=== PATIENT | female | born 1950 | race Caucasian/White ===

== ENCOUNTER → 2017-12-13 08:24 | Outpatient (CLI) | payer MEDICARE, OTHER, SELFPAY ==
--- NOTE | 2017-12-13 08:28 | XR_ITS ---
XR DEXA axial skeleton HISTORY: ITS.REASON: OSTEOPENIA ORDERING PHYSICIAN: Nanette Frausto MD PATIENT AGE: 67 years COMPARISON: None FINDINGS: The BMD measured at the left femoral neck is 0.830 g/cm squared with a T score of -1.5. This is considered Osteopenic according to the World Health Organization criteria. Fracture risk is Moderate. Treatment is advised. L1-L4 density has a T score of 0.8 IMPRESSION: Osteopenia with moderate fracture risk. Treatment is advised. Recommend follow-up exam November 2019
--- NOTE | 2017-12-13 08:28 | MM_ITS ---
MM Dig screening mamm BI w/CAD ORDERING PHYSICIAN : Nanette Frausto MD PATIENT AGE: 67 years GENDER: Female COMPARISON: July 2013 & June 2012... & October 2014 bilateral mammogram studies INDICATION: ITS.REASON: SCREENING takes estrogen. No new complaints. Noncontributory family history.. TECHNIQUE: Standard CC and MLO images were obtained. R2 CAD reviewed. FINDINGS: Fairly dense breast tissue bilaterally which do slightly decreased sensitivity of mammography. No suspicious nor dominant mass nor suspicious calcifications. Prior films are helpful and demonstrate no significant interval change. Similar pattern bilaterally. Bilateral follow-up in one year adequate IMPRESSION: Stable bilateral mammogram with no significant new findings. Moderately dense breast slightly decreased sensitivity mammography but no new areas of concern Bilateral follow-up one year BI-RADS Category: 1 Negative RECOMMENDED FOLLOW-UP: 1YR 1 YEAR FOLLOW-UP (A letter has been sent to the patient regarding results of the study.)
== END ==
PROVIDERS: PCP Family Medicine; Visit Provider Family Medicine
DX: Z12.31 Encounter for screening mammogram for malignant neoplasm of breast (principal); M85.89 Other specified disorders of bone density and structure, multiple sites
CPT/HCPCS: 77067; 77080

== ENCOUNTER → 2018-05-29 10:06 | Outpatient (CLI) | payer MEDICARE, OTHER, SELFPAY ==
--- NOTE | 2018-05-29 10:13 | XR_ITS ---
XR foot LT min 3V HISTORY: Pain following injury ITS.REASON: LT FOOT FX ORDERING PHYSICIAN: Nanette Frausto MD PATIENT AGE: 67 years COMPARISON: None FINDINGS: No fracture lines are evident. There is some faint calcification noted along the lateral aspect in the base of the fifth metatarsal. This could represent an area of periosteal reaction from healing fracture. There are no old exams available for comparison. There is a nonspecific lucency also at the base of the fifth metatarsal at 6 mm round well-circumscribed benign-appearing. Otherwise negative. IMPRESSION: Possible healing fracture base of the fifth metatarsal. No acute fracture evident
== END ==
PROVIDERS: PCP Family Medicine; Visit Provider Family Medicine
DX: S99.192A Other physeal fracture of left metatarsal, initial encounter for closed fracture (principal)
CPT/HCPCS: 73630

== ENCOUNTER → 2019-08-11 09:51 | Outpatient (CLI) | payer MEDICARE, OTHER, SELFPAY ==
[2019-08-11 11:37] LABS: Coronavirus 19 IgG Antibody Negative (Negative); Coronavirus 19 IgM Antibody Negative (Negative)
== END ==
PROVIDERS: Visit Provider Ophthalmology
DX: Z03.818 Encounter for observation for suspected exposure to other biological agents ruled out (principal)
CPT/HCPCS: 36415; 86328

== ENCOUNTER 2019-08-12 09:01 | Day surgery (SDC) | payer MEDICARE, OTHER, SELFPAY ==
--- NOTE | 2019-08-06 13:19 | SUR.PREOP ---
08/06/2019--PHONE CALL MADE TO PATIENT. PATIENT UNDERSTANDS THAT LAB WORK AND COVID TESTING NEEDS TO BE COMPLETED @ 0930 ON 08/11/2019. PATIENT UNDERSTANDS IF LAB WORK AND COVID-19 TESTS ARE NOT COMPLETED BY 12PM ON THAT DATE, THE SURGERY SCHEDULED WILL BE CANCELLED AND RESCHEDULED FOR ANOTHER TIME.
[2019-08-07 13:07] VITALS: BMI 30.9
[2019-08-12 10:09] VITALS: BP 158/71; PULSE 67; RESP 18; TEMP 36.6; O2SAT 97
[2019-08-12 10:20] LABS: POC Glucose,Bedside 103 (70-110)
[2019-08-12 11:08] VITALS: BP 181/84; PULSE 69; RESP 18; TEMP 36.3; O2SAT 98
== END 2019-08-12 11:30 | disposition home or self-care (01) ==
LOC: OUTP 09:03
PROVIDERS: PCP Family Medicine; Visit Provider Ophthalmology
PROC: (CPT 66821; principal; 2019-08-12 10:00)
DX: H26.40 Unspecified secondary cataract (principal); E11.9 Type 2 diabetes mellitus without complications; M19.90 Unspecified osteoarthritis, unspecified site; Z80.9 Family history of malignant neoplasm, unspecified; Z83.3 Family history of diabetes mellitus; Z82.49 Family history of ischemic heart disease and other diseases of the circulatory system; Z90.710 Acquired absence of both cervix and uterus; Z85.820 Personal history of malignant melanoma of skin; Z79.84 Long term (current) use of oral hypoglycemic drugs; Z79.899 Other long term (current) drug therapy; Z88.1 Allergy status to other antibiotic agents
CPT/HCPCS: 66821; 82962

== ENCOUNTER 2019-10-19 13:13 | Emergency (ER) | payer MEDICARE, OTHER, SELFPAY ==
[2019-10-19 13:31] VITALS: BP 144/75; PULSE 88; RESP 19; TEMP 37.1; O2SAT 98; BMI 30.9
--- NOTE | 2019-10-19 13:42 | XR_ITS ---
PROCEDURE: XR FOOT RT MIN 3V Patient Age:68Y CLINICAL INDICATION: stepped on nail Puncture wound the heel area COMPARISON: No exams were available for comparison FINDINGS: Right foot 3 views. AP lateral oblique Right foot intact with no fracture or dislocation. No lytic or blastic change. There is normal mineralization. The joint spaces are well-preserved. Tarsals and metatarsals intact no significant degenerative/arthritic changes.... The lateral view shows a tiny 0.6 mm pinpoint graeme of radiopaque density 5 mm deep to the skin-this is nonspecific but may reflect a tiny residual radiopaque fragment from the puncture wound. Since I do not see it on the other views I cannot confirm totally exclude artifact on this single view Small plantar calcaneal spur less than 3.5 mm length.. Minimal calcification at the insertion of Achilles tendon also noted. Calcaneus intact.. IMPRESSION: 1..No fracture. Osseous structures intact. 2... Tiny 0.6 mm, pinpoint radiopaque graeme of radiopaque density is seen just 5 mm beneath the skin surface of the the heel.. This could reflect and suspect for a tiny residual foreign body fragment from the recent puncture wound; but since I do not see of the views I cannot totally exclude artifact Dictated by: Caleb Peterson MD 10/19/2019 21:55 Electronically signed by Caleb Peterson MD in [place] 10/19/2019 21:55
--- NOTE | 2019-10-19 13:51 | HMH.EDUTC ---
[facility] [place] Disposition Clinical Impression: Puncture wound Disposition: Home, Self-Care Condition on Discharge: Good Instructions: DI for Puncture Wound Additional Instructions: follow up with dr collins call for appointment in am if worsen of no improvement return or be seen in ed Prescriptions: Ciprofloxacin HCl [Ciprofloxacin 500mg Tab] 500 mg PO BID 14 Days #28 tab Prescription Printed clindamycin HCL [Clindamycin HCl 300mg Cap] 300 mg PO Q8 14 Days #42 cap Prescription Printed Referrals: Nanette Frausto MD [Primary Care Provider] - Medical Decision Making - Edmundo Inquiry Pt receiving controlled substance: No Vital Signs: 10/19/19 13:31 Temperature 98.7 F Temperature Source Oral Pulse Rate [Right Brachial] 88 Respiratory Rate 19 Blood Pressure [Right Arm] 144/75 H Blood Pressure Mean [Right Arm] 98 Blood Pressure Source [Right Arm] Automatic Cuff Blood Pressure Position [Right Arm] Sitting 02 Sat by Pulse Oximetry 98 Oxygen Delivery Method Room Air Orders (Tests/Meds): ED MEDICATIONS Discontinued Medications Generic Name Dose Route Start Last Admin Trade Name Freq PRN Reason Stop Dose Admin Tetanus/Reduced Diphtheria/Acell Pertussis 0.5 ml 10/19/19 13:36 10/19/19 13:44 Adacel Tdap 0.5ml Syringe IM 10/19/19 13:37 0.5 ml .ONCE ONE Administration ORDERS Category Date Time Status XR foot RT min 3V Stat Exams 10/19/19 13:42 Ordered - Physician Consults Physician Consulted: audrey Time: 14:27 Comment/Response: pt states she can take cipro but it upsets her stomach but will take it. and minocycline upset stomach also, suggest clinda to cover mrsa. [facility] [place] HPI - General Chief complaint: Urgent Treatment Center Stated complaint: stepped on nail. AO 10/19/19 Time Seen by Provider: 10/19/19 13:51 Mode of Arrival: Ambulatory Source of Information: Patient Limitations: No Limitations Description of Symptoms (Recalled from Triage Doc. by RN): PATIENT STATES SHE STEPPED ON A NAIL WITH HER RIGHT FOOT YESTERDAY HEENT Symptoms (Recalled from RN notes): No Resp Symptoms (Recalled from RN notes): No Skin Symptoms (Recalled from RN notes): Yes MS Symptoms (Recalled from RN notes): No Functional Status (Recalled from RN notes): WNL - History of Present Illness Provider Complaint: 68 yr old female presents with stepping on nail yesterday. Pt states she had her shoes on and it might have went 1/2 in in shoe and foot. pt states she is a diabetic. - Related Data Home Medications Medication Instructions Recorded Confirmed levocetirizine 5 mg tablet 5 mg PO QHS 09/26/17 10/19/19 metformin 500 mg tablet 500 mg PO DAILY 09/26/17 10/19/19 Previous Rx's Medication Instructions Recorded Ciprofloxacin HCl [Ciprofloxacin 500 mg PO BID 14 Days #28 tab 10/19/19 500mg Tab] clindamycin HCL [Clindamycin HCl 300 mg PO Q8 14 Days #42 cap 10/19/19 300mg Cap] Allergies Allergy/AdvReac Type Severity Reaction Status Date / Time levofloxacin Allergy Verified 08/07/19 13:05 oxytetracycline Allergy Verified 08/07/19 13:05 Quinolones Allergy Verified 08/07/19 13:05 - Worker's Comp Is this a Worker's Comp case?: No [facility] [place] History - Hepatitis A Screen Drug use history?: No High risk sexual behaviors?: No History of sexually transmitted infection?: No Currently employed?: No Childcare worker?: No Do you have indoor plumbing?: Yes Do you have electricity?: Yes Attestation statement:: This patient has been screened for Hepatitis A risk factors. I have reviewed the patient's past medical history: Yes Medical History: Reports:: Cancer, Diabetes Mellitus Type 2, Hyperlipidemia Denies:: Diabetes Mellitus Type 1, Internal Pacemaker, Lung Disease, MRSA, Seizures Other Medical History: Denies: Blood Transfusion Reaction Other Surgeries: Yes: Colonoscopy, EGD, Hysterectomy-Total, Tubal Ligation, Other. No: Pacemaker Amputation: No Fractures: No - Social History
[2019-10-19 14:33] VITALS: BP 144/75; PULSE 88; RESP 19; TEMP 37.1; O2SAT 98
== END 2019-10-19 14:52 | disposition home or self-care (01) ==
PROVIDERS: Emergency Provider Nurse Practitioner Family; PCP Family Medicine
DX: S91.331A Puncture wound without foreign body, right foot, initial encounter (principal); W22.8XXA Striking against or struck by other objects, initial encounter; Y92.017 Garden or yard in single-family (private) house as the place of occurrence of the external cause; Z23 Encounter for immunization; E11.9 Type 2 diabetes mellitus without complications; Z79.84 Long term (current) use of oral hypoglycemic drugs; E78.5 Hyperlipidemia, unspecified; Z88.1 Allergy status to other antibiotic agents; Z90.79 Acquired absence of other genital organ(s); Z79.899 Other long term (current) drug therapy
CPT/HCPCS: 29515; G0463; 73630; 90471; 90715; 99202

== ENCOUNTER → 2019-10-20 08:54 | Outpatient (CLI) | payer MEDICARE, OTHER, SELFPAY ==
--- NOTE | 2019-10-20 09:07 | XR_ITS ---
PROCEDURE: XR CALCANEUS RT MIN 2V CLINICAL INDICATION: Right foot puncture wound Pain COMPARISON: No exams were available for comparison FINDINGS: No fracture or dislocation. No lytic or blastic change. There is normal mineralization. The joint spaces are well-preserved. No significant degenerative/arthritic changes. No erosive changes evident. Other findings:No radiopaque foreign body. No obvious soft tissue gas IMPRESSION: No acute findings. Dictated by: Isra Forbes MD 10/20/2019 10:32 Electronically signed by Isra Forbes MD in [place] 10/20/2019 10:32
== END ==
PROVIDERS: PCP Family Medicine; Visit Provider Podiatrist
DX: S90.851A Superficial foreign body, right foot, initial encounter (principal); S91.331A Puncture wound without foreign body, right foot, initial encounter
CPT/HCPCS: 73650; 87070; 87077; 87186; 87205

== ENCOUNTER → 2019-10-20 17:57 | Outpatient (CLI) | payer MEDICARE, OTHER, SELFPAY | PROVIDERS: Visit Provider Podiatrist | DX: S90.851A Superficial foreign body, right foot, initial encounter (principal); S91.331A Puncture wound without foreign body, right foot, initial encounter | CPT/HCPCS: 73650; 87070; 87077; 87186; 87205 ==

== ENCOUNTER 2020-03-21 10:55 | Emergency (ER) | payer MEDICARE, OTHER, SELFPAY ==
[2020-03-21 11:05] VITALS: BP 112/87; PULSE 93; RESP 16; TEMP 36.7; O2SAT 95; BMI 33.3
--- NOTE | 2020-03-21 11:28 | HMH.EDUTC ---
[facility] [place] Clinical Impression: COVID-19 virus test result unknown Sinus infection Qualifiers: Sinusitis location: maxillary Chronicity: acute Recurrence: non-recurrent Qualified Code(s): J01.00 - Acute maxillary sinusitis, unspecified Disposition: Home, Self-Care Condition on Discharge: Good Instructions: Sinusitis, DI for Sinusitis, DI for COVID-19 (Suspected or Confirmed ), Preventing the Spread of Coronavirus Discharge Instructions Additional Instructions: Start antibiotic patient to take as ordered for a full length of time even if you feel better. Sinus infections do not get better overnight. It may take 2-3 days to notice much improvement so be sure to use conservative measures as discussed for symptoms. Flonase 1 spray each nostril daily to help with nasal congestion, sinus and ear pressure/information Increase fluids Humidifier/vaporizer as needed Tylenol and ibuprofen as needed for fever or pain. If symptoms do not improve or get worse return or be seen in the ER Follow-up with primary care this week self isolate until test results are known negative Prescriptions: Azithromycin [Zithromax 250mg tab] 250 mg PO DIRECTED #6 tab Prescription Printed Referrals: Nanette Frausto MD [Primary Care Provider] - Time of Disposition: 12:10 Medical Decision Making - Edmundo Inquiry Pt receiving controlled substance: No Vital Signs: 03/21/20 11:05 Temperature 98.0 F Temperature Source Oral Pulse Rate [Right Brachial] 93 H Respiratory Rate 16 Blood Pressure [Right Arm] 112/87 Blood Pressure Mean [Right Arm] 95 Blood Pressure Source [Right Arm] Automatic Cuff Blood Pressure Position [Right Arm] Sitting 02 Sat by Pulse Oximetry 95 Oxygen Delivery Method Room Air Orders (Tests/Meds): ORDERS Category Date Time Status Covid-19 Nasal PCR ([facility]) Routine Lab 03/21/20 11:15 Received [facility] [place] - General Chief complaint: Urgent Treatment Center Stated complaint: cough, fever, soa Time Seen by Provider: 03/21/20 11:28 Mode of Arrival: Ambulatory Source of Information: Patient Limitations: No Limitations Description of Symptoms (Recalled from Triage Doc. by RN): PATIENT C/O POSSIBLE SINUS INFECTION HEENT Symptoms (Recalled from RN notes): Yes Resp Symptoms (Recalled from RN notes): No Skin Symptoms (Recalled from RN notes): No MS Symptoms (Recalled from RN notes): No Functional Status (Recalled from RN notes): WNL - History of Present Illness Provider Complaint: 69 yr old female presents for coughing up yellow tinged sputum, sore throat,body aches, sinus pressure,horseness and low grade temp. pt states she was around people that had tested pos for covid but they had been out of the 14 day isolation. pt states she thinks it could be a sinus infection but this feels different than her normal sinus infection. - Related Data Home Medications Medication Instructions Recorded Confirmed levocetirizine 5 mg tablet 5 mg PO QHS 09/26/17 03/21/20 metformin 500 mg tablet 500 mg PO DAILY 09/26/17 03/21/20 estradioL [Cynthia] 1 patch TRANSDERMA .semiweekly 03/21/20 03/21/20 Previous Rx's Medication Instructions Recorded Azithromycin [Zithromax 250mg 250 mg PO DIRECTED #6 tab 03/21/20 tab] Allergies Allergy/AdvReac Type Severity Reaction Status Date / Time levofloxacin Allergy Verified 02/05/20 09:40 oxytetracycline Allergy Verified 02/05/20 09:40 Quinolones Allergy Verified 02/05/20 09:40 - Worker's Comp Is this a Worker's Comp case?: No [facility] History - Hepatitis A Screen Drug use history?: No High risk sexual behaviors?: No History of sexually transmitted infection?: No Currently employed?: No Childcare worker?: No Do you have indoor plumbing?: Yes Do you have electricity?: Yes Attestation statement:: This patient has been screened for Hepatitis A risk factors. I have reviewed the patient's past medical history: Yes Medical History: Reports:: Cancer,
[2020-03-21 12:13] VITALS: BP 112/87; PULSE 93; RESP 16; TEMP 36.7; O2SAT 95
--- NOTE | 2020-03-21 19:59 | PC.NURSE ---
PATIENT NOTIFIED OF POSITIVE COVID RESULTS
[2020-03-21 21:24] LABS: UTC Influenza A Antigen Negative (Negative)
[2020-03-21 21:25] LABS: UTC Influenza B Antigen Negative (Negative); UTC Strep Screen (Rapid) Negative (Negative)
== END 2020-03-21 12:15 | disposition home or self-care (01) ==
PROVIDERS: Emergency Provider Nurse Practitioner Family; PCP Family Medicine
DX: U07.1 COVID-19 (principal); J01.00 Acute maxillary sinusitis, unspecified; E11.9 Type 2 diabetes mellitus without complications; Z79.84 Long term (current) use of oral hypoglycemic drugs; Z79.899 Other long term (current) drug therapy
CPT/HCPCS: G0463; 87804; 87880; 99202; U0003

== ENCOUNTER → 2022-01-04 12:18 | Outpatient (CLI) | payer MEDICARE, OTHER, SELFPAY ==
--- NOTE | 2022-01-04 12:29 | XR_ITS ---
FINAL REPORT CLINICAL HISTORY: HIP PAIN,LOW BACK PAIN,KNEE PAIN FINDINGS: RIGHT KNEE Three views of the right knee reveal no evidence of fracture or dislocation. The bony alignment is normal. There are mild degenerative changes. There is no evidence of joint effusion. No localized soft tissue abnormality is identified. IMPRESSION: Mild degenerative changes with no acute abnormality identified. Reviewed, Interpreted and Dictated by Lauri Alonso III, MD Transcribed by Delmi Beltran Authenticated and [facility]
--- NOTE | 2022-01-04 12:29 | XR_ITS ---
FINAL REPORT CLINICAL HISTORY: HIP PAIN,LOW BACK PAIN,KNEE PAIN FINDINGS: LUMBAR SPINE 5 views of the lumbar spine were obtained. There is no evidence of fracture or dislocation. The vertebral alignment is normal. There are moderate degenerative changes with facet arthropathy in the lower lumbar spine. IMPRESSION: Moderate degenerative changes with no acute bony abnormality. Reviewed, Interpreted and Dictated by Lauri Alonso III, MD Transcribed by Delmi Beltran Authenticated and [facility]
--- NOTE | 2022-01-04 12:29 | XR_ITS ---
FINAL REPORT CLINICAL HISTORY: HIP PAIN,LOW BACK PAIN,KNEE PAIN FINDINGS: RIGHT HIP Two views of the right hip with an AP pelvis demonstrate no acute fracture or dislocation. The visualized bony structures are well aligned. There are mild degenerative changes. There is a small chronic calcification adjacent to the greater trochanter. No other soft tissue abnormality is seen. IMPRESSION: Mild degenerative changes with no acute bony abnormality. Reviewed, Interpreted and Dictated by Lauri Alonso III, MD Transcribed by Delmi Beltran Authenticated and [facility]
== END ==
PROVIDERS: PCP Family Medicine; Visit Provider Nurse Practitioner Family
DX: M54.50 Low back pain, unspecified (principal); M25.551 Pain in right hip; M25.561 Pain in right knee
CPT/HCPCS: 72110; 73502; 73562

== ENCOUNTER → 2022-01-23 13:40 | Outpatient (CLI) | payer MEDICARE, OTHER, SELFPAY ==
--- NOTE | 2022-01-23 13:52 | MR_ITS ---
FINAL REPORT CLINICAL HISTORY: BACK PAIN FOR 3 MONTHS. RIGHT LEG PAIN AND WEAKNESS. FINDINGS: Multiplanar MR imaging of the lumbar spine was performed without contrast. On the sagittal T2-weighted images, decreased signal is seen throughout. The vertebral alignment is normal. There is no evidence of fracture. No bony mass is identified. The conus is seen at approximately the L1 level and has an unremarkable appearance. T12-L1: There is no significant central canal stenosis or neural foraminal narrowing. L1-2: There is no significant canal stenosis or neural foraminal narrowing. L2-3: Mild diffuse disc bulge with mild bilateral neural foraminal narrowing. L3-4: Mild diffuse disc bulge with small posterolateral disc protrusions. There is mild to moderate left and mild right neural foraminal narrowing. L4-5: Mild diffuse disc bulge with mild bilateral neural foraminal narrowing. L5-S1: There is no significant canal stenosis or neural foraminal narrowing. Incidental note is made of multiple parapelvic renal cysts measuring up to 1.8 cm. IMPRESSION: Multilevel degenerative disc disease with disc protrusions and disc bulges from L2-3 through L4-5 with mild to moderate neural foraminal narrowing. Reviewed, Interpreted and Dictated by Ambrose Thurman MD Transcribed by Smiley Doyle Authenticated and [facility]
--- NOTE | 2022-01-23 13:52 | MR_ITS ---
FINAL REPORT CLINICAL HISTORY: KNEE PAIN. PATIENT FELL ON KNEE 3 WEEKS AGO. KNEE INSTABILITY. LATERAL SIDED KNEE PAIN FINDINGS: Multi planar MR imaging was performed of the right knee. The anterior and posterior cruciate ligaments are intact. The quadriceps and patellar tendons are intact. There is mild heterogeneous signal in the posterior horn of the medial meniscus extending to the margin consistent with tear. The lateral meniscus is intact. The medial and lateral collateral ligaments appear intact. The medial and lateral retinacula appear intact. There is no evidence of bone marrow edema or osteochondral defect. There is a tiny, 1.5 cm, popliteal cyst with an inclusion body. IMPRESSION: Tear of the posterior horn of the medial meniscus. Tiny popliteal cyst with inclusion body. Reviewed, Interpreted and Dictated by Ambrose Thurman MD Transcribed by Mohit Padilla Authenticated and [facility]
== END ==
PROVIDERS: PCP Family Medicine; Visit Provider Nurse Practitioner Family
DX: M54.50 Low back pain, unspecified (principal); M25.561 Pain in right knee
CPT/HCPCS: 72148; 73721; 76376

== ENCOUNTER 2023-08-15 09:50 | Outpatient (CLI) | payer MEDICARE, OTHER, SELFPAY ==
--- NOTE | 2023-08-15 09:58 | MM_ITS ---
PROCEDURE INFORMATION: Exam: MG Bilateral Screening 3D Mammography Exam date and time: 08/15/2023 9:46 AM Age: 72 years old Clinical indication: Screening examination TECHNIQUE: Imaging protocol: Bilateral Screening tomosynthesis and 2D mammography including computer-aided detection (CAD) when performed. COMPARISON: 1. MG SCBI MM Dig screening mamm BI w/CAD 12/13/2017 8:43 AM 2. MG DMSB DIG MAMM-SCREEN [place] 10/29/2014 10:24 AM FINDINGS: MAMMOGRAPHY: Breast composition: The breasts are heterogeneously dense, which may obscure small masses. Mass: None. Architectural distortion: None. Calcifications: No suspicious calcifications. Asymmetric density: None. Skin thickening: None. Axillary adenopathy: None. IMPRESSION: No mammographic evidence of malignancy. Annual screening is recommended unless otherwise clinically indicated. ASSESSMENT: BI-RADS Category 1: Negative
== END 2023-08-15 23:59 | disposition home or self-care (01) ==
LOC: RAD 09:51
PROVIDERS: PCP Family Medicine; Visit Provider Family Medicine
DX: Z12.31 Encounter for screening mammogram for malignant neoplasm of breast (principal); Z13.820 Encounter for screening for osteoporosis; Z78.0 Asymptomatic menopausal state; N60.19 Diffuse cystic mastopathy of unspecified breast
CPT/HCPCS: 77063; 77067

== ENCOUNTER 2023-09-26 07:48 | Outpatient (CLI) | payer MEDICARE, OTHER, SELFPAY ==
--- NOTE | 2023-09-26 07:48 | NM_ITS ---
APPROVED REPORT Exam: Nuclear Stress Test Indication: HTN, DM, HYPERLIPIDEMIA, SOB, ABN EKG Patient Location: Outpatient Stress Tech: Marium Garcia MA Tech:GILMAR Pardo RT (R)(N)(M) Ht: 5 ft 4 in Wt: 180 lbs Bra Size: D HR: 67 bpm BP: 194/83 mmHg BSA: 1.87 m2 TID: 1.15 BMI: 30.8 History: HTN, DM, HYPERLIPIDEMIA, SOB, ABN EKG Procedure: Patient received 0.4 mg of intravenous Lexiscan, resting heart rate 67 bpm, resting blood pressure 194/83 mmHg, with Lexiscan maximum heart rate achieved was 107 bpm which is % of the maximum predicted heart rate and blood pressure was 202/78 mmHg. With Lexiscan, patient denied any complaint of chest pain. Cardiac Stress and Resting SPECT Images: Cardiac Stress and Resting SPECT images were obtained using technetium 99m Myoview 31.8 mCi stress and 10.21 mCi at rest. Resting and stress imaging in supine and prone positions demonstrate no evidence of fixed or reversible perfusion defects. Gated imaging demonstrates normal global and regional LV systolic function. LVEF is calculated at 59%. Conclusion: No evidence of fixed or reversible perfusion defects. Gated imaging demonstrates normal global and regional LV systolic function. LVEF is calculated at 59%. Electronically signed by : Sandy Miller MD 09/27/2023 12:54:07
--- NOTE | 2023-09-26 07:57 | CA_ITS ---
APPROVED REPORT EXAM: Comprehensive 2D, Doppler, and color-flow Echocardiogram Incident Response Consultant: Keshia Hdez CRT Ht: 5 ft 4 in Wt: 182lbs BSA: 1.88 BP: 140/59 mmHg Indications: Abnormal ECG, Diabetes, Peripheral Edema, Hyperlipidemia, Hypertension/HDD 2D Dimensions LA Volume 36.00 mL LA Volume Index 18.80 mL/m2 (M/F) 16-34 M-Mode Dimensions RVDd 3.11 cm (0.9-2.6) LA Diam 3.62 cm (1.9-4.0) LVDd 3.65 cm (3.5-5.7) LVDs 2.36 cm (3.5-5.7) IVSd 1.39 cm (0.6-1.1) PWd 0.72 cm (0.6-1.1) EF (Teich) 65.70% FS 35.30% EDV (Teich) 56.30 mL TAPSE 1.92 (<1.7) ESV (Teich) 19.30 mL LV Diastology E Decel Time 243 (160-240 msec) E/A Ratio 0.71 MED A' 11.80 cm/s LAT A' 8.80 cm/s Aortic Valve AO Peak GR. 8.70 mmHg Mitral Valve MV A Velocity 95.0 (40-130 cm/s) E/A Ratio 0.71 Pulmonary Valve PV Peak Velocity 68.0 (50-150 cm/s) Tricuspid Valve TR P. Velocity 154.00 cm/s RAP Estimate 10.00 mmHg RVSP 19.50 mmHg Left Ventricle The left ventricle is normal size. The left ventricular systolic function is normal. The left ventricular ejection fraction is within the normal range. Proximal septal thickening is noted. There is normal LV segmental wall motion. The left ventricular diastolic function is normal. LVEF is 55%. Right Ventricle The right ventricle is normal size. The right ventricular systolic function is normal. Atria The left atrium size is normal. The right atrium size is normal. There is no Doppler evidence of interatrial shunt. Aortic Valve The aortic valve is mildly thickened. There is no aortic valvular stenosis. Trace aortic regurgitation is present. Mitral Valve The mitral valve is normal in structure. No evidence of mitral valve stenosis. Trace mitral regurgitation. Tricuspid Valve The tricuspid valve leaflets are thin and pliable. Trace tricuspid regurgitation. There is insufficient TR jet to estimate RVSP. Pulmonic Valve The pulmonary valve is normal in structure. Trace pulmonic regurgitation. Great Vessels The aortic root is normal in size. The ascending aorta is not well-visualized. IVC is normal in size and collapses >50% with inspiration. Pericardium There is no pericardial effusion. Other Information Study Quality: Fair Conclusion Normal biventricular systolic function. No significant valvular stenosis or regurgitation. Electronically signed by : Sandy Miller MD 09/29/2023 23:15:17
[2023-09-26] MEDS: SODIUM CHLORIDE 0.9% 10ML SYR (RAD ONLY) 10 ML IV ×2 (08:00→09:20)
[2023-09-26] MEDS: REGADENOSON 0.4MG/5ML SYRINGE 0.4 MG IV (09:20)
[2023-09-26] MEDS: ISOTOPE MYOVIEW (PER STUDY) 1 DOSE IV (10:22)
== END 2023-09-26 23:59 | disposition home or self-care (01) ==
LOC: RAD 07:48
PROVIDERS: PCP Family Medicine; Visit Provider Nurse Practitioner
DX: R94.31 Abnormal electrocardiogram [ECG] [EKG] (principal); I10 Essential (primary) hypertension
CPT/HCPCS: 78452; 93017; 93018; 93306; A9502; J2785

== ENCOUNTER 2023-10-02 11:40 | Outpatient (CLI) | payer MEDICARE, OTHER, SELFPAY ==
--- OUTSIDE RECORDS SUMMARY | 2023-10-02 11:44 | XMS_ITS | Clinical Summary ---
Author Name Unknown Address [address] [place] [address] Phone Organization [facility] , [facility] Address [address] [place] [address] Phone Care Team Providers Care Navy Airspace Officer Name Role Phone CODY KAYE, MARIEL DEMARCO Unavailable [phone] Jolene KAYE, Popeye Jimenez Unavailable [phone] Reason for Referral Date Encounter Description Provider Reason for Referral 02/17/22 Physician Specified Popeye Fernández MD Referral To Physician Reason for Visit and Chief Complaint The Chief Complaint is: R knee pain Problems Includes: Problems addressed during this encounter and other active Problems All Visits Onset Date Resolved Date Provider Condition S tatus Joint Pain in the Right Knee 02/16/2022 Popeye Fernández MD Active Last Documented On 2 1:36PM ; [facility], [facility] Plan of Treatment Fall Risk Assessment: This patient has been identified as a fall risk. Balance/gait along with postural blood pressure, vision and home fall hazards have been assessed. Medications have been reviewed, and recommendations made with regard to contributing factors for future falls. Plan of care: Consideration of vitamin D supplementation along with balance and strength training with consideration for formal physical therapy has been discussed with the patient. - Last Documented On 02/27/2022 10:57AM ; [facility], [facility] Pending Tests Order Diagnosis Results Due Ordering P rovider Therapy - Physical Therapy Knee 02/17/22 Popeye Fernández MD Last Documented On 2 10:57AM ; [facility], [facility] Instructions to patient Lose weight Last Documented On 2 3:36PM ; [facility], [facility] Assessments Includes: Assessments from this encounter Findings 71 year old female with right knee medial meniscus tear. I reviewed the xrays performed today in the office in addition to the MRI images that were bought in. I do not see anything structurally wrong. Her pain at this time is intermittent and she rates her pain at a 2 out of 10. I recommended she begin an oral anti inflammatory to help with symptoms and formal outpatient therapy. She is understanding an agreeable. she will call if her pain persist or worsens. All questions have been answered at this time. - Last Documented On 02/27/2022 10:57AM ; [facility], [facility] Instructions Includes: Instructions from this encounter Instructions to patient Lose weight Last Documented On 2 3:36PM ; [facility] Medical Equipment - Implanted Devices Includes: Current Devices No Medical Equipment Recorded Medications Includes: Medications discussed during this encounter and other current Medications New / Renewed during this visit Popeye Fernández MD on 02/17/2022 Meloxicam 7.5 MG Oral Tablet Provider: Popeye Fernández MD 30 day supply: 30 tablet, 2 refills Diagnosis: Take 1 tablet by mouth daily Pharmacy: [facility] [phone], [address] - Last Documented On 2 4:35PM By Shaji Lee ; [facility], [facility] Current Medications (continue as prescribed) glipiZIDE-metFORMIN HCl 2.5-250 MG Oral Tablet 022 Provider: Diagnosis: Last Documented On 2 3:30PM By [facility] Losartan Potassium 25 MG Oral Tablet 02/17/2022 Prov ider: Diagnosis: Last Documented On 2 3:30PM By Shaji Lee ; [facility] Levocetirizine Dihydrochloride 2.5 MG/5ML Oral Solutio n 02/17/2022 Provider: Diagnosis: Last Documented On 2 3:31PM By [facility] Vivelle-Dot 0.025 MG/24HR Transdermal Patch Twice Week ly 02/17/2022 Provider: Diagnosis: Last Documented On 2 3:31PM By Shaji Lee ; [facility], [facility] Medications Administered Includes: Administered Medications from this encounter No Administered Medications Recorded Vital Signs Includes: Vital Signs from this encounter Vital Name 02/17/2022 03:35P Blood Pressure Sitting (mmHg) 151/76 Pulse Rate-Sitting (bpm) 74 Height (in) 64 Weight (lb) 180 Body Mass Index (kg/m2) 30.9 Body Surface Area (m2) 1.9 Note: mf Last Documented: On 02/17/2022 3:35PM ; [facility] Results Includes: Results discussed during this encounter No Results Recorded For Specified Dates History of Present Illness Includes: History of Present Illness from this encounter ANNE Yoo is a 71 year old female. - Allergy list reviewed - Problem list reviewed - Medication list reviewed 02/17/22 71 year old male presents today with chronic right knee pain. She has pain anteriorly and medially. She ambulates with a cane for balance. She states she had a fall from her knee giving away in January. She had pain with weight bearing after the fall in addition to pain with going down stairs and getting out of a vehicle. She describes the pain being sharp, stabbing and burning. Today, she is able to weight bear and walk. She rates her pain at a 2 out of 10. Social History Description Last Updated Tobacco non-user 02/17/2022 Last Documented On 2 10:57AM ; [facility] Smoking Status Unknown Procedures and Surgical History Includes: Procedures from this encounter Procedures Code Diagnosis Performing Provider Service L ocation Service Date use of tobacco assessment performed 1000F Last Documented On 2 3:36PM ; [facility] patient screened for future fall risk: documentation of any fall with injury in past year 1100F Last Documented On 2 3:36PM ; [facility] follow-up visit in one month Last Documented On 2 3:36PM ; [facility] referral to physician Last Documented On 2 3:36PM ; [facility] Medical History Includes: Medical History addressed during this encounter No Medical History Recorded Family History Includes: Family History addressed during this encounter No Family History Recorded Review of Systems Includes: Review of Systems from this encounter No Review of Systems Recorded Mental Status Includes: Mental Status from this encounter No Mental Status Recorded Functional Status Includes: Functional Status from this encounter No Functional Status Recorded Physical Exam Includes: Physical Exam from this encounter Allergies Includes: Active Allergies Substance Type Reaction Onset Date Resolved Date Statu s predniSONE Allergy pain in neck and throat 02/16/2022 Active Last Documented On 2 3:36PM ; [facility], [facility] Naproxen Allergy Nausea 02/17/2022 Active Last Documented On 2 3:36PM ; [facility] Levaquin Allergy myalgia 02/16/2022 Active Last Documented On 2 3:36PM ; [facility] Dexamethasone Allergy Skin Rashes / Er uption of skin, Hives / Urticaria 02/16/2022 Active Last Documented On 2 3:36PM ; [facility] Ceftin Allergy Nausea 02/16/2022 Active Last Documented On 2 3:36PM ; [facility], [facility] Encounters Encounter Provider Location Date Check-In Time Check-Out Time Diagnosis Physician Specified Popeye Fernández MD [facility] 02/18/20 22 2:34PM 4:29PM Insurance Includes: Active Insurance Policies Plan Name Member ID Group # Subscriber Relationship Effect olimpia Dates 1 - Medicare Part B [facility] [id number] Elma Salvador 2 - [facility] Office of Community Care [id number] Elma [place] Clinical Notes Includes: Clinical Notes from this encounter No Clinical Notes Recorded
--- OUTSIDE RECORDS SUMMARY | 2023-10-02 11:44 | XMS_ITS ---
Care Plan - [facility], [facility] Created on: October 02, 2023 Elma Yoo : 1950 Sex: Female Author Name Unknown Address [address] [place] [address] [place] [address] Phone Organization [facility] , [facility] Address [address] [place] [address] Phone Care Team Providers Care Cmm Programmer Name Role Phone CODY KAYE, MARIEL DEMARCO Unavailable [phone] Jolene KAYE, Popeye Jimenez Unavailable [phone]
--- OUTSIDE RECORDS SUMMARY | 2023-10-02 11:44 | XMS_ITS ---
Author Name Unknown Address [address] [place] [address] Phone Organization [facility] , [facility] Address [address] [place] [address] Phone Care Team Providers Care Him Manager Name Role Phone CODY KAYE, MARIEL DEMARCO Unavailable [phone] Jolene KAYE, Popeye Jimenez Unavailable [phone] Reason for Referral Date Encounter Description Provider Reason for Referral 02/17/22 Physician Specified Popeye Fernández MD Referral To Physician Problems Includes: Active, inactive, and resolved Problems All Visits Onset Date Resolved Date Provider Condition S tatus Joint Pain in the Right Knee 02/16/2022 Popeye Fernández MD Active Last Documented On 2 1:36PM ; [facility], [facility] Plan of Treatment Instructions to patient Lose weight Last Documented On 2 3:36PM ; [facility], [facility] Assessments Includes: Assessments for all patient encounters No Assessments Recorded Instructions Includes: Instructions for all patient encounters Instructions to patient Lose weight Last Documented On 2 3:36PM ; [facility], [facility] Medical Equipment - Implanted Devices Includes: Current and historical Devices No Medical Equipment Recorded Medications Includes: Current and historical Medications Current Medications (continue as prescribed) glipiZIDE-metFORMIN HCl 2.5-250 MG Oral Tablet 022 Provider: Diagnosis: Last Documented On 2 3:30PM By Shaji Lee ; [facility] Losartan Potassium 25 MG Oral Tablet 02/17/2022 Prov ider: Diagnosis: Last Documented On 2 3:30PM By Shaji Lee ; [facility], [facility] Levocetirizine Dihydrochloride 2.5 MG/5ML Oral Solutio n 02/17/2022 Provider: Diagnosis: Last Documented On 2 3:31PM By Shaji Lee ; [facility], [facility] Vivelle-Dot 0.025 MG/24HR Transdermal Patch Twice Week ly 02/17/2022 Provider: Diagnosis: Last Documented On 2 3:31PM By Shaji Lee ; [facility], [facility] Past Medications on file Meloxicam 7.5 MG Oral Tablet 02/17/2022 - 05/18/2022 Provider: Popeye Ramirez MD Diagnosis: Take 1 tablet by mouth daily Last Documented On 2 4:35PM By Shaji Lee ; [facility], [facility] Medications Administered Includes: Administered Medications in patient's chart No Administered Medications Recorded Results Includes: Results from 10/01/2022 through 10/02/2023 No Results Recorded For Specified Dates History of Present Illness History of Present Illness not supported for this document type No History of Present Illness Recorded Social History Description Last Updated Tobacco non-user 02/17/2022 Last Documented On 2 10:57AM ; [facility], [facility] Smoking Status Unknown Medical History Includes: Medical History in patient's chart No Medical History Recorded Family History Includes: Family History in patient's chart No Family History Recorded Review of Systems Review of Systems not supported for this document type No Review of Systems Recorded Mental Status No Mental Status Recorded Functional Status No Functional Status Recorded Physical Exam Physical Exam not supported for this document type No Physical Exam Recorded Allergies Includes: Active, inactive, and resolved Allergies Substance Type Reaction Onset Date Resolved Date Statu s predniSONE Allergy pain in neck and throat 02/16/2022 Active Last Documented On 2 3:36PM ; [facility], [facility] Naproxen Allergy Nausea 02/17/2022 Active Last Documented On 2 3:36PM ; [facility], [facility] Levaquin Allergy myalgia 02/16/2022 Active Last Documented On 2 3:36PM ; [facility], [facility] Dexamethasone Allergy Skin Rashes / Er uption of skin, Hives / Urticaria 02/16/2022 Active Last Documented On 2 3:36PM ; [facility] Ceftin Allergy Nausea 02/16/2022 Active Last Documented On 2 3:36PM ; [facility] Insurance Includes: Active Insurance Policies Plan Name Member ID Group # Subscriber Relationship Effect olimpia Dates 1 - Medicare Part [facility] [id number] Elma Salvador 2 - [facility] Office of Replaced By [facility] Care [id number] Elma Salvador Clinical Notes Includes: Signed Clinical Notes starting from 03/02/2022 No Clinical Notes Recorded
--- OUTSIDE RECORDS SUMMARY | 2023-10-02 11:44 | XMS_ITS | Clinical Summary ---
Author Name Unknown Address [address] [place] [address] Phone Organization [facility] , [facility] Address [address] [place] [address] Phone Care Team Providers Care Compressor Technician Name Role Phone CODY KAYE, MARIEL DEMARCO Unavailable [phone] Jolene KAYE, Popeye Jimenez Unavailable [phone] Reason for Visit and Chief Complaint [Patient Encounter] Problems Includes: Problems addressed during this encounter and other active Problems Current Visit Onset Date Resolved Date Provider Leonila barrera Status Joint Pain in the Right Knee 02/16/2022 Popeye Fernández MD Active Last Documented On 2 1:36PM ; [facility], [facility] Plan of Treatment No Plan of Treatment Recorded Assessments Includes: Assessments from this encounter No Assessments Recorded Medical Equipment - Implanted Devices Includes: Current Devices No Medical Equipment Recorded Medications Includes: Medications discussed during this encounter and other current Medications Current Medications (continue as prescribed) glipiZIDE-metFORMIN HCl 2.5-250 MG Oral Tablet 022 Provider: Diagnosis: Last Documented On 2 3:30PM By Shaji Lee ; [facility], [facility] Losartan Potassium 25 MG Oral Tablet 02/17/2022 Prov ider: Diagnosis: Last Documented On 3:30PM By Shaji Lee ; [facility], [facility] Levocetirizine Dihydrochloride 2.5 MG/5ML Oral Solutio n 02/17/2022 Provider: Diagnosis: Last Documented On 2 3:31PM By Shaji Lee ; [facility], [facility] Vivelle-Dot 0.025 MG/24HR Transdermal Patch Twice Week ly 02/17/2022 Provider: Diagnosis: Last Documented On 2 3:31PM By Shaji Lee ; [facility], [facility] Medications Administered Includes: Administered Medications from this encounter No Administered Medications Recorded Results Includes: Results discussed during this encounter No Results Recorded For Specified Dates History of Present Illness Includes: History of Present Illness from this encounter No History of Present Illness Recorded Social History No Social History Recorded - Smoking Status Unknown Medical History Includes: Medical History addressed during [...] Exam Includes: Physical Exam from this encounter No Physical Exam Recorded Allergies Includes: Active Allergies Substance Type Reaction Onset Date Resolved Date Statu s predniSONE Allergy pain in neck and throat 02/16/2022 Active Last Documented On 2 3:36PM ; [facility], [facility] Naproxen Allergy Nausea 02/17/2022 Active Last Documented On 2 3:36PM ; [facility], [facility] Levaquin Allergy myalgia 02/16/2022 Active Last Documented On 2 3:36PM ; [facility], [facility] Dexamethasone Allergy Skin Rashes / Er uption of skin, Hives / Urticaria 02/16/2022 Active Last Documented On 2 3:36PM ; [facility], [facility] Ceftin Allergy Nausea 02/16/2022 Active Last Documented On 2 3:36PM ; [facility], [facility] Encounters Encounter Provider Location Date Check-In Time Check-Out Time Diagnosis [Patient Encounter] Popeye Fernández MD 02/16/2022 1:36PM 11:59PM Insurance Includes: Active Insurance Policies Plan Name Member ID Group # Subscriber Relationship Effect olimpia Dates 1 - Medicare Part B [facility] [id number] Elma Salvador 2 - [facility] Office of [facility] Care [id number] [place]ma [place] Clinical Notes Includes: Clinical Notes from this encounter No Clinical Notes Recorded
== END 2023-10-02 23:59 | disposition home or self-care (01) ==
LOC: RT 11:42
PROVIDERS: PCP Family Medicine; Visit Provider Physician Assistant
DX: R42 Dizziness and giddiness (principal)
CPT/HCPCS: 93270

== ENCOUNTER 2023-12-26 09:54 | Outpatient (CLI) | payer MEDICARE, OTHER, SELFPAY ==
[2023-12-26 10:50] LABS: Albumin Level 4.2 g/dl (3.5-5.0)
[2023-12-26 10:52] LABS: Alanine Aminotransferase 30 U/L (12-78); Aspartate Amino Transferase 27 U/L (14-36); Bilirubin,Unconjugated 0.8 mg/dL (0.0-1.1)
[2023-12-26 10:53] LABS: Alkaline Phosphatase 126 U/L (38-126); Bilirubin,Indirect 0.8 mg/dL (0.0-0.9); Bilirubin,Total 0.8 mg/dl (0.2-1.3); Chol/HDL Ratio 2.8 (1-3.5); Cholesterol 151 mg/dl (140-200); HDL Cholesterol 54 mg/dl (40-60); Total Protein,Serum 6.5 g/dl (6.3-8.2); Triglycerides 165 mg/dl (30-150); VLDL Cholesterol 33 mg/dL (0-40)
[2023-12-26 11:03] LABS: Direct LDL Cholesterol 60.83 mg/dL (100-129)
== END 2023-12-26 23:59 | disposition home or self-care (01) ==
LOC: LAB 09:55
PROVIDERS: PCP Family Medicine; Visit Provider Nurse Practitioner
DX: E78.5 Hyperlipidemia, unspecified (principal)
CPT/HCPCS: 36415; 80061; 80076

== ENCOUNTER 2024-01-17 13:58 | Outpatient (CLI) | payer MEDICARE, OTHER, SELFPAY ==
--- NOTE | 2024-01-17 14:02 | CA_ITS ---
FINAL REPORT TECHNIQUE: Color Doppler, duplex Doppler and francisco scale sonography of the bilateral neck arterial vasculature was performed. Velocities were measured in the carotid arteries. Stenosis evaluation based on the validated velocity criteria. CLINICAL HISTORY: DIZZY, DIAPHORETIC, VOMITTING WITH SYNCOPE FINDINGS: The peak systolic velocity of the right common carotid artery is 124 cm/s. The peak systolic velocity of the right internal carotid artery is 92 cm/s and end diastolic velocity 24 cm/s. The ICA/CCA ratio is 1.5. A small amount of plaque is present. The right external carotid artery is patent. The right vertebral artery is patent with antegrade flow. The peak systolic velocity of the left common carotid artery is 94 cm/s. The peak systolic velocity of the left internal carotid artery is 116 cm/s and end diastolic velocity 30 cm/s. The ICA/CCA ratio is 1.4. A small amount of plaque is present. The left external carotid artery is patent.The left vertebral artery is patent with antegrade flow. IMPRESSION: Less than 50% bilateral carotid stenoses. Bilateral patent vertebral arteries with antegrade flow. If indicated, CTA or MRA could further evaluate. Reviewed, Interpreted and Dictated by Lauri Alonso III, MD Transcribed by Hanna Valerio Authenticated and [facility]
== END 2024-01-17 23:59 | disposition home or self-care (01) ==
LOC: RT 13:58
PROVIDERS: PCP Family Medicine; Visit Provider Family Medicine
DX: R55 Syncope and collapse (principal)
CPT/HCPCS: 93880

== ENCOUNTER 2024-12-04 10:56 | Outpatient (CLI) | payer MEDICARE, OTHER, SELFPAY ==
[2024-12-04 11:31] LABS: Hematocrit 42.1 % (37.0-47.0); Hemoglobin 13.4 g/dL (12.2-16.2); Immature Granulocytes % 0.2 %; Mean Corpuscular HGB Conc 31.8 g/dL (31.8-35.4); Mean Corpuscular Hemoglobin 30.0 pg (27.0-31.2); Mean Corpuscular Volume 94.2 fl (81-99); Nucleated Red Blood Cells % 0 %; Platelet Count 244 K/mm3 (142-424); Red Blood Count 4.47 M/mm3 (4.20-5.40); Red Cell Distribution Width-SD 47.8 fL; White Blood Count 4.6 K/mm3 (4.8-10.8)
[2024-12-04 12:27] LABS: Free T4 (Free Thyroxine) 0.89 ng/dl (0.78-2.19)
[2024-12-04 12:33] LABS: Albumin Level 4.5 g/dl (3.5-5.0)
[2024-12-04 12:34] LABS: Chloride 101 mmol/L (98-107); Potassium 4.7 mmoL/L (3.5-5.1); Sodium 139 mmol/L (136-145)
[2024-12-04 12:36] LABS: Alanine Aminotransferase 19 U/L (12-78); Anion Gap 12.7 mEq/L (5-15); Aspartate Amino Transferase 26 U/L (14-36); Bilirubin,Unconjugated 0.9 mg/dL (0.0-1.1); Blood Urea Nitrogen 21 mg/dl (7-17); Carbon Dioxide 30 mmol/L (22.0-30.0); Creatinine,Serum 0.80 mg/dl (0.52-1.04); Estimated Glomerular Filt Rate 70 ml/min (>60); GFR (African American) 84 ML/MIN (>60); Total Protein,Serum 7.0 g/dl (6.3-8.2)
[2024-12-04 12:37] LABS: Alkaline Phosphatase 122 U/L (38-126); Bilirubin,Direct 0.1 mg/dl (0.0-0.4); Bilirubin,Indirect 0.9 mg/dL (0.0-0.9); Bilirubin,Total 1.0 mg/dl (0.2-1.3); Calcium 9.5 mg/dl (8.4-10.2); Cholesterol 141 mg/dl (140-200); Glucose 108 mg/dl (74-100); HDL Cholesterol 54 mg/dl (40-60); Magnesium 2.0 mg/dl (1.6-2.3); Triglycerides 167 mg/dl (30-150)
[2024-12-04 13:10] LABS: Thyroid Stimulating Hormone 2.49 uIU/mL (0.465-4.68)
== END 2024-12-04 23:59 | disposition home or self-care (01) ==
LOC: LAB 10:58
PROVIDERS: PCP Family Medicine; Visit Provider Nurse Practitioner
DX: E78.5 Hyperlipidemia, unspecified (principal); I10 Essential (primary) hypertension
CPT/HCPCS: 36415; 80048; 80061; 80076; 83735; 84439; 84443; 85025

== ENCOUNTER 2025-02-05 08:49 | Outpatient (CLI) | payer MEDICARE, OTHER, SELFPAY ==
--- OUTSIDE RECORDS SUMMARY | 2023-08-09 10:00 | XMS_ITS ---
Author Organization [facility] Address [address] [facility] [address] JESS Zuniga [id number] Care Team Providers Care Parts Representative Name Role Phone Cristina Frausto Primary Care Provider Inna Laws Unavailable [phone] Allergies Allergen (clinical drug ingredient) Drug/Non Drug Allergy documented on EMR Reaction Allergy Type Onset Date Status cefuroxime Cefuroxime Axetil burned stomach Drug Allergy Active dexamethasone Dexamethasone facial swelling Drug Allergy Active dexamethasone Dexamethasone redness in face and neck, tender to the touch Drug Allergy Active Levaquin myalgias Drug Allergy Active Oxytetracycline HCl Unknown Drug Allergy Active predniSONE pain in neck and throat Drug Allergy Active ezetimibe Zetia depression, hurting, dizzy, high blood pressure Drug Allergy Active Results Component Value Reference Range Notes Glycohemoglobin A1c (in hous e) Reviewed date:08/10/2023 10:08:30 AM Interpretation:6.1 Performing Lab: Notes/Report: 6.1 glycohemoglobin 6.1% 5 - 6.5 % P-Comprehensive Metabolic Pa jennifer (CMP) Reviewed date:08/10/2023 10:08:30 AM Interpretation:gluc 111, alk phos 132 Performing Lab: Notes/Report: Test performed by [facility] [place][note 2[place] [facility] , [address], [place] [address] Jordin Phelps MD, Cardiac Cath Technician CLIA: [id number] Sodium 143 135-145 mEq/L Potassium 5.1 3.5-5.3 mEq/L Chloride 106 97-108 mEq/L CO2 27 22-32 mEq/L Glucose 111 65-99 mg/dL BUN 17 8-23 mg/dL Creatinine 0.81 0.50-1.00 mg/dL Calcium 9.5 8.6-10.4 mg/dL eGFR by Creatinine 76 >59 mL/min/1.73m2 Protein 6.6 6.0-8.3 g/dL Albumin 4.4 3.5-5.3 g/dL Alkaline Phosphatase 132 35-121 IU/L ALT (SGPT) 19 <5-47 IU/L AST (SGOT) 20 <5-40 IU/L Bilirubin, Total 0.6 <0.2-1.2 mg/dL A/G Ratio 2.0 1.1-2.5 mg/dL P-Lipid Panel Reviewed date:08/10/2023 10:08:30 AM Interpretation:chol 253, trig 175, chol/hdl 5.06, non-hdl 203, ldl 168, ldl/hdl 3.4 Performing Lab: Notes/Report: Test performed by [facility], [address] , [address], [place] [address] Jordin Phelps MD, Cardiac Cath Technician CLIA: [id number] Cholesterol 253 <200 mg/dL Triglycerides 175 <150 mg/dL HDL Cholesterol 50 >39 mg/dL Cholesterol / HDL Ratio 5.06 0.00-4.44 Ratio Non-HDL Cholesterol 203 <130 mg/dL LDL Cholesterol (Calculation) 168 <130 mg/dL LDL Cholesterol Levels* Less than 100 mg/dL Optimal 100 to 129 mg/dL Near Optimal/ Above Optimal 130 to 159 mg/dL Borderline High 160 to 189 mg/dL High 190 mg/dL and above Very High * Categories as recommended by the 2004 ATPIII guidelines LDL/HDL Ratio 3.4 <3.3 Ratio LDL Cholesterol Patient History Test Date: 06/22/2023 LDL Results: 190 Units: mg/dL % Change: - Test Date: 08/09/2023 LDL Results: 168 Units: mg/dL % Change: -11% Reason For Referral Reason hyperlipidemia Diagnosis 1 Mixed hyperlipidemia (E78.2) [facility] Referring Provider First Name Cristina Ross Referring Provider Last Name Jett Referring Provider Speciality [facility] Referred Provider Sandy Miller Referred Provider Specialty Cardiovascul ar Disease General Notes Tiara Tom 08/09/19 24 4:27:16 PM > sent referral Referral Priority Routine REASON FOR VISIT 6 wk ck up Medications Medication SIG (Take, Route, Frequency, Duration) Notes Start Date End Date Status hydroCHLOROthiazide 12.5 MG 1 tab(s) ora lly once a day; Duration: 90 days 11/02/2021 Not-Taking Albuterol Sulfate HFA 108 (9 0 Base) MCG/ACT 1 puff Inhalation every 4 hrs, prn 03/21/2023 Active Xyzal Allergy 24HR 5 MG 1 tab(s) orally once a day (in the evening); Duration: 90 days 01/29/2013 Active Glimepiride 2 MG 1/2 tablet with breakfast or the first main meal of the day Orally Once a day 05/31/2023 Active Losartan Potassium 50 MG 1 tab(s) orally once a day; Duration: 90 days 03/30/2021 Active Vivelle-Dot 0.025 MG/24HR 1 PATCH applie d topically 2 times a week Active Meclizine HCl 12.5 MG 1 orally bedtime prn 04/29/2015 Active Patanase 0.6 % 2 spray(s) each nostril daily Active Turmeric 500MG DIRECTED ONCE DAILY PRN Active Cod Liver Oil w/Vit A & D - 1 cap(s) ora lly twice a day; Duration: 30 day(s) Active Ibuprofen 600 MG 1 tablet with food or milk as needed Orally three times a day as needed; Duration: 60 days 08/09/2023 Active Vital Signs Weight 181 lbs 08/09/2023 Blood pressure systolic 120 mm Hg 08/09/19 24 Blood pressure diastolic 72 mm Hg 024 Heart Rate 88 /min 08/09/2023 Height 64.75 in 08/09/2023 BMI 30.35 kg/m2 08/09/2023 Encounters Encounter Location Date Provider Diagnosis [facility] [address] [facility] [address] [facility] [address] JESS Zuniga [id number] 08/09/2023 Cristina Frausto Mixed hyperlipidemia E78.2 ; Type 2 diabetes mellitus without complication E11.9 ; Essential hypertension I10 ; Fibrocystic breast disease (FCBD), unspecified laterality N60.19 and Lumbar back pain M54.50 Assessments Encounter Date Diagnosis (ICD Code) Assessment Notes Treatment Notes Treatment Clinical Notes Section Notes 08/09/2023 Mixed hyperlipidemia (ICD-10 - E78.2) 08/09/2023 Type 2 diabetes mellitus without complication (ICD-10 - E11.9) 08/09/2023 Essential hypertension (ICD-10 - I10) 08/09/2023 Fibrocystic breast disease (FCBD), unspecified laterality (ICD-10 - N60.19) 08/09/2023 Lumbar back pain (ICD-10 - M54.50) Plan Of Treatment Medication Medication Name Sig Start Date Stop Date Notes Ibuprofen 600 MG 1 tablet with food o r milk as needed Orally three times a day as needed; Duration: 60 days 08/09/2023 Referrals Referral Date Details 08/09/2023 08/09/2023, hyperlip idemia, Sandy Miller Next Appt Details Follow Up: 3 Months, Reason: Provider Name:Cristina John er, 02/19/2025 01:45:00 PM, [address] [facility] [facility] [address] [facility], [address], [place], [place], [phone], Progress Notes * DAV IVEYB:1950 (74 yo F)Acc No.[id number]:08/09/2023 Progress Notes Patient: VILMA LORENZANA Provider: Cristina Frausto M.D. :1950 A ge:72 Y S ex:Female Date:08/09/2023 Address:[facility] [address] [id number] Subjective: * Chief Complaints: * 1 . 6 wk ck up. * HPI: E ndocrinology: 72 year old female presents with c/o Recent Blood Sugars P t here for 6 week f/u on DM 2. Started on Glimeperide 05/30 due to Metformin causing loose stools. Pt states stools have improved and pt feels better taking 1/2 tablet of Glimeperide . * ROS: D ERMATOLOGY: no R aris. n o H gertrude. G ASTROENTEROLOGY: no N ausea. n o V omiting. U ROLOGY: no D ifficulty urinating. n o B lood in urine. * Medical History: H yperlipidemia, Allergic Rhinitis, Basal Cell Carcinoma, Face, 2005, CT for Pulsatile Tinnitus, Dr. Fitch 09/2009, Diabetes Mellitus Type II. * Surgical History: H ysterectomy , Urethral , Vocal Cord Polyps Removal 12/2007, RT Trigger Thumb X3 , Colonoscopy, Diverticulitis, Dr. Adames 01/29/2018, RT Cataract 10/29/2018, LT Cataract 12/10/2018. * Hospitalization/Major Diagno stic Procedure: [place] [facility] [place] * Family History: F ather: 70 yrs, septicemia, diagnosed with Heart Disease. M other: alive 92 yrs.?1 brother(s) , 1 sister(s) . 2 son(s) , 1 daughter(s) . . * Social History: C URRENT TOBACCO USE S moking Status: Patient does NOT smoke. C affeine: yes, frequency:Tea 3 glasses a day, occasional 1 cup decaffeinated coffee. Exercise: no. Home smoke detector use: yes. Marital Status: . Past smoking status: no, Smoking status: Does not smoke. krishan. * Medications: T paolo Vivelle-Dot 0.025 MG/24HR Patch Twice Weekly 1 PATCH applied topically 2 times a week , Taking Meclizine HCl 12.5 MG Tablet 1 orally bedtime prn , Taking Turmeric 500MG DIRECTED ONCE DAILY PRN , Taking Cod Liver Oil w/Vit A & D - Capsule 1 cap(s) orally twice a day , Taking Patanase 0.6 % Solution 2 spray(s) each nostril daily , Taking Albuterol Sulfate HFA 108 (90 Base) MCG/ACT Aerosol Solution 1 puff Inhalation every 4 hrs, prn , Taking Xyzal Allergy 24HR 5 MG Tablet 1 tab(s) orally once a day (in the evening) , Taking Glimepiride 2 MG Tablet 1/2 tablet with breakfast or the first main meal of the day Orally Once a day , Taking Losartan Potassium 50 MG Tablet 1 tab(s) orally once a day , Not-Taking hydroCHLOROthiazide 12.5 MG Tablet 1 tab(s) orally once a day , Medication List reviewed and reconciled with the patient * Allergies: O xytetracycline HCl, Levaquin: myalgias, Cefuroxime Axetil: burned stomach, Dexamethasone: facial swelling, predniSONE: pain in neck and throat, Dexamethasone: redness in face and neck, tender to the touch, Zetia: depression, hurting, dizzy, high blood pressure. Objective: * Vitals: W t:181, Temp:98.0, BP:120/72, HR:88, Nurse:kanchan, Ht: 64.75, BMI:30.35. * Examination: G eneral Examination: General Appearance: N AD. H EENT: u nremarkable.?Oral cavity: n o lesions, mucosa moist and WNL, no erythema. N tiffanie: s upple, no lymphadenopathy. C hest: n ormal shape and expansion. H eart: R SR. L ungs: c lear to auscultation. A bdomen: s oft and nontender, no organomegaly or masses. N eurologic Exam: I ntact, gait normal. S kin: r aris at the sacrum has cleared. P eripheral pulses: n ormal . B ack: mild dorsal kyphosis. E xtremities: n o leg edema. Assessment: * Assessment: 1. M ixed hyperlipidemia - E78.2 (Primary) 2 . T ype 2 diabetes mellitus without complication - E11.9 3 . E ssential hypertension - I10 4 .?Fibrocystic breast disease (FCBD), unspecified laterality - N60.19 5 . L umbar back pain - M54.50 Plan: * Treatment: Value Reference Range C holesterol / HDL Ratio 5.06 H 0.00-4.44 - Ratio * C holesterol 253 H <200 - mg/dL * H DL Cholesterol 50 >39 - mg/dL * L DL Cholesterol (Calculation) 168 H <130 - mg/d L * L DL/HDL Ratio 3.4 H <3.3 - Ratio * N on-HDL Cholesterol 203 H <130 - mg/dL * T riglycerides 175 H <150 - mg/dL * Giuliana Del Toro 08/10/2023 10:0 7:31 AM >See phone encounter ? Referral To:Sandy Miller??Cardiovascular Disease ?Reason:hyperlipidemia 2.?Type 2 diabetes mellitus without complication?LAB: Glycohemoglobin A1c (in house) (Collection Date & Time - 08/09/2023)? 6.1* Value Reference Range g lycohemoglobin 6.1% 5 - 6.5 % * Shawnee Florian 08/09/2023 4:12:31 PM > , Provider reviewed results while patient in office. Giuliana Del Toro 08/10/2023 10:07:31 AM >See phone encounter 3.?Essential hypertension?LAB: P-Comprehensive Metabolic Panel (CMP) (Collection Date & Time - 08/09/2023 08:30 AM)?gluc 111, alk phos 132* Value Reference Range A /G Ratio 2.0 1.1-2.5 - mg/dL * A lbumin 4.4 3.5-5.3 - g/dL * A lkaline Phosphatase 132 H 35-121 - IU/L * A LT (SGPT) 19 <5-47 - IU/L * A ST (SGOT) 20 <5-40 - IU/L * B ilirubin, Total 0.6 <0.2-1.2 - mg/dL * B UN 17 8-23 - mg/dL * C alcium 9.5 8.6-10.4 - mg/dL * C hloride 106 97-108 - mEq/L * C O2 27 22-32 - mEq/L * C reatinine 0.81 0.50-1.00 - mg/dL * G lucose 111 H 65-99 - mg/dL * P otassium 5.1 3.5-5.3 - mEq/L * S odium 143 135-145 - mEq/L * P rotein 6.6 6.0-8.3 - g/dL * e GFR by Creatinine 76 >59 - mL/min/1.73m2 * AlvertoGiuliana 08/10/2023 10:0 7:31 AM >See phone encounter 4.?Lumbar back pain? Start Ibuprofen Tablet, 600 MG, 1 tablet with food or milk as needed, Orally, three times a day as needed, 60 days, 180, Refills 2.?? * Procedure Codes: 3 6416 CAPILLARY BLOOD DRAW, 97761 GLYCATED HEMOGLOBIN TEST, Modifiers: QW * Follow Up: 3 Months * Images: Billing Information: * Visit Code: 59615 Office Visit, Est Pt., Level 4. * Procedure Codes: 41643 CAPILLARY BLOOD DRAW. 22744 GLYCATED HEMOGLOBIN TEST. Modifiers: QW * Electronic signature of Cristina Frausto MD on 02/05/2025 at 08:58 AM EST Sign off status: Pending * Provider: Cristina Frausto M.D. Date: 0 08/09/2023 Generated for Mandy ng/Faallyng/eTransmitting on: 1 04/07/2024 08:58 AM EST History and Physical Notes * HPI (History of Present Illness) Category Sub-Category Detail Notes Category Not es Endocrinology Recent Blood Sugars Pt here for 6 week f/u on DM 2. Started on Glimeperide 05/30 due to Metformin causing loose stools. Pt states stools have improved and pt feels better taking 1/2 tablet of Glimeperide Examination Category Sub-Category Detail Notes Category Not es General Examination HEENT: unremarkable Heart: RSR Lungs: clear to auscultatio n Abdomen: soft and nontender, no organomegaly or masses Extremities: no leg edema General Appearance: NAD Skin: rash at the sacrum h as cleared Neurologic Exam: Intact, gait normal Neck: supple, no lymphaden opathy Oral cavity: no lesions, mucosa m oist and WNL, no erythema Peripheral pulses: normal Back: mild dorsal kyphosis Chest: normal shape and exp ansion Consultation Request Notes Referral Date Referring Provider Referred Provider Not es 08/09/2023 Cristina Frausto Yaz hyperlipid emia
--- OUTSIDE RECORDS SUMMARY | 2023-11-15 09:45 | XMS_ITS ---
Author Organization [facility] Address [address] [facility] [address] [place] [id number] Care Team Providers Care Gambling Box Person Name Role Phone Cristina Frausto Primary Care Provider Inna Laws Unavailable [phone] Allergies Allergen (clinical drug ingredient) Drug/Non Drug [...] Notes Glycohemoglobin A1c (in hous e) Reviewed date:11/16/2023 10:54:09 AM Interpretation: Performing Lab: Notes/Report: glycohemoglobin 5.8% 5 - 6.5 % P-Comprehensive Metabolic Pa jennifer (CMP) Reviewed date:12/03/2023 10:38:42 AM Interpretation:bun 24, alk phos 138 Performing Lab: Notes/Report: Test performed by [facility], [facility] , [address], [place] [address] Jordin Phelps MD, Model Engine Mechanic CLIA: [id number] Sodium 142 135-145 mmol/L Potassium 4.6 3.5-5.3 mmol/L Chloride 104 97-108 mmol/L CO2 27 22-32 mmol/L Glucose 91 65-99 mg/dL BUN 24 8-23 mg/dL Creatinine 0.92 0.50-1.00 mg/dL Calcium 9.5 8.6-10.4 mg/dL eGFR by Creatinine 65 >59 mL/min/1.73m2 Protein 6.6 6.0-8.3 g/dL Albumin 4.3 3.5-5.3 g/dL Alkaline Phosphatase 138 35-121 IU/L ALT (SGPT) 21 <5-47 IU/L AST (SGOT) 18 <5-40 IU/L Bilirubin, Total 0.6 <0.2-1.2 mg/dL A/G Ratio 1.9 1.1-2.5 Carotid Duplex Reviewed date:02/05/2024 04:07:05 PM Interpretation:less than 50% bilateral stenosis, consider CTA/MRA Performing Lab: Notes/Report: less than 50% bilateral stenosis, consider CTA/MRA REASON FOR VISIT 3 months, Needs labs & diabetic eye exam Medications Medication SIG (Take, Route, Frequency, Duration) Notes Start Date End Date Status Losartan Potassium 50 MG 1 tab(s) orally once a day; Duration: 90 days 03/30/2021 Active Ibuprofen 600 MG 1 tablet with food o r milk as needed Orally three times a day as needed; Duration: 60 days 08/09/2023 Active Meclizine HCl 12.5 MG 1 orally bedtime prn 016 Active Glimepiride 2 MG 1/2 tablet with yara kfast or the first main meal of the day Orally Once a day; Duration: 90 days 05/31/2023 Active Cod Liver Oil w/Vit A & D - 1 cap(s) orally twice a day; Duration: 30 day(s) Active Patanase 0.6 % 2 spray(s) each nost ril daily Active Albuterol Sulfate HFA 108 (90 Base) MCG/ACT 1 puff Inhalation every 4 hrs, prn 03/21/2023 Active ZyrTEC 10 MG 1 tablet Orally Once a day 11/15/2023 Active Repatha 140 MG/ML 1 mL Subcutaneous ev rachael 2 weeks Active Vivelle-Dot 0.025 MG/24HR 1 PATCH applie d topically 2 times a week Active Turmeric 500MG DIRECTED ONCE DAILY PRN Active PreserVision AREDS 2 - as directed Orally Active Vital Signs Weight 182.4 lbs 11/15/2023 Blood pressure systolic 132 mm Hg 08/29/20 24 Blood pressure diastolic 86 mm Hg 024 Heart Rate 78 /min 11/15/2023 Height 64.75 in 11/15/2023 BMI 30.58 kg/m2 11/15/2023 Encounters Encounter Location Date Provider Diagnosis [facility] [address] [id number] 11/15/2023 Cristina Frausto Type 2 diabetes krys itus without complication E11.9 ; Mixed hyperlipidemia E78.2 ; Essential hypertension I10 ; Allergic rhinitis, unspecified allergic rhinitis type J30.9 and Syncope, unspecified syncope type R55 Assessments Encounter Date Diagnosis (ICD Code) Assessment Notes Treatment Notes Treatment Clinical Notes Section Notes 11/15/2023 Type 2 diabetes mellitus without complication (ICD-10 - E11.9) 11/15/2023 Mixed hyperlipidemia (ICD-10 - E78.2) 11/15/2023 Essential hypertension (ICD-10 - I10) 11/15/2023 Allergic rhinitis, unspecified allergic rhinitis type (ICD-10 - J30.9) 11/15/2023 Syncope, unspecified syncope type (ICD-10 - R55) Plan Of Treatment Medication Medication Name Sig Start Date Stop Date Notes ZyrTEC 10 MG 1 tablet Orally Once a day 11/15/2023 Xyzal Allergy 24HR 5 MG 1 tab(s) orally once a day (in the evening) 01/29/2013 Next Appt Details Follow Up: 4 Months, Reason: Provider Name:Cristina John er, 02/19/2025 01:45:00 PM, [address], [address], [place], [place], [id number], Progress Notes * DAV IVEYB:1950 (74 yo F)Acc No.[id number]:11/15/2023 Progress Notes Patient: VILMA LORENZANA Provider: Cristina Frausto M.D. :1950 A ge:72 Y S ex:Female Date:11/15/2023 Address:[address] [place] [address], [id number] Subjective: * Chief Complaints: * 1 . 3 months. 2. Needs labs & diabetic eye exam. * HPI: C ardiology: The patient is here for a 3 month check up. Pt states she is doing good except she has noticed her BP has been fluctuating up and down. Pt states she is also having some sinus drainage and pressure. Pt states the Xyzal is not helping much. Denies : Chest Pain. D enies : Short of Breath. D enies : Dizziness. D enies : Palpitations. * ROS: D ERMATOLOGY: no R aris. n o H gertrude. G ASTROENTEROLOGY: no N ausea. n o V omiting. n o D iarrhea.? U ROLOGY: no D ifficulty urinating. n [...] S tepped on [facility] 10/19/2019. * Family History: F ather: 70 [...] Does not smoke. krishan. * Medications: T aking PreserVision AREDS 2 - Capsule as directed Orally , Taking Repatha 140 MG/ML Solution Prefilled Syringe 1 mL Subcutaneous every 2 weeks , Taking Vivelle-Dot 0.025 MG/24HR Patch Twice Weekly 1 PATCH applied topically 2 times a week , Taking Turmeric 500MG DIRECTED ONCE DAILY [...] a day (in the evening) , Taking Losartan Potassium 50 MG Tablet 1 tab(s) orally once a day , Taking Ibuprofen 600 MG Tablet 1 tablet with food or milk as needed Orally three times a day as needed , Taking Meclizine HCl 12.5 MG Tablet 1 orally bedtime prn , Taking Glimepiride 2 MG Tablet 1/2 tablet with breakfast or the first main meal of the day Orally Once a day , Discontinued hydroCHLOROthiazide 12.5 MG Tablet 1 tab(s) orally once a day , Medication List reviewed and reconciled with the patient * Allergies: O xytetracycline HCl, Levaquin: myalgias, Cefuroxime Axetil: burned stomach, Dexamethasone: facial swelling, predniSONE: pain in neck and throat, Dexamethasone: redness in face and neck, tender to the touch, Zetia: depression, hurting, dizzy, high blood pressure. Objective: * Vitals: W t:182.4, Temp:98.1, BP:132/86, HR:78, Nurse:CARINA, Ht: 64.75, BMI:30.58. * Examination: G eneral Examination: General Appearance: N AD. H EENT: u nremarkable.?Oral cavity: n o lesions, mucosa moist and WNL, no erythema. N tiffanie: s upple, no lymphadenopathy, no carotid bruits. C hest: n ormal shape and expansion. H eart: R SR, no ectopics. L ungs: c lear to auscultation. A bdomen: s oft and nontender, no organomegaly or masses. N eurologic Exam: I ntact, gait normal. P eripheral pulses: n ormal . B ack: mild dorsal kyphosis. E xtremities: n o leg edema. ? Assessment: * Assessment: 1. T ype 2 diabetes mellitus without complication - E11.9 (Primary) 2 . M ixed hyperlipidemia - E78.2 3 . E ssential hypertension - I10 4 .?Allergic rhinitis, unspecified allergic rhinitis type - J30.9 5 . S yncope, unspecified syncope type - R55 Plan: * Treatment: Value Reference Range A /G Ratio 1.9 1.1-2.5 - * A lbumin 4.3 3.5-5.3 - g/dL * A lkaline Phosphatase 138 H 35-121 - IU/L * A LT (SGPT) 21 <5-47 - IU/L * A ST (SGOT) 18 <5-40 - IU/L * B ilirubin, Total 0.6 <0.2-1.2 - mg/dL * B UN 24 H 8-23 - mg/dL * C alcium 9.5 8.6-10.4 - mg/dL * C hloride 104 97-108 - mmol/L * C O2 27 22-32 - mmol/L * C reatinine 0.92 0.50-1.00 - mg/dL * G lucose 91 65-99 - mg/dL * P otassium 4.6 3.5-5.3 - mmol/L * S odium 142 135-145 - mmol/L * P rotein 6.6 6.0-8.3 - g/dL * e GFR by Creatinine 65 >59 - mL/min/1.73m2 * Imelda Wakefield 12/03/2023 10:38 :38 AM >See phone encounter ?LAB: Glycohemoglobin A1c (in house) (Collection Date & Time - 11/15/2023)* Value Reference Range g lycohemoglobin 5.8% 5 - 6.5 % * Coco Escamilla 11/15/2023 2:5 7:57 PM > , Provider reviewed results while patient in office. 2.?Allergic rhinitis, unspecified allergic rhinitis type? Start ZyrTEC Tablet Chewable, 10 MG, 1 tablet, Orally, Once a day;?Stop Xyzal Allergy 24HR Tablet, 5 MG, 1 tab(s), orally, once a day (in the evening).?? 3.?Syncope, unspecified syncope type?Imaging: Carotid Duplex (Performed Date - 01/17/2024)?less than 50% bilateral stenosis, consider CTA/MRA* Tiara Tom 11/15/2023 3:24: 29 PM > no auth required; faxed to Tiara Sheriff 01/01/2024 11:45:33 AM > faxed to [facility] Imelda Cline 02/05/2024 4:06:55 PM > , See phone encounter * Procedure Codes: G 2211 Complex e/[place], [address] CAPILLARY BLOOD DRAW, 27955 GLYCATED HEMOGLOBIN TEST, Modifiers: QW , 3075F SYST BP GE 130 - 139MM HG, 3079F DIAST BP 80-89 MM HG, 3044F HG A1C LEVEL LT 7.0% * Follow Up: 4 Months * Images: Billing Information: * Visit Code: 92835 Office Visit, Est Pt., Level 4. * Procedure Codes: G2211 Complex e/[place]. [address] CAPILLARY BLOOD DRAW. 15237 GLYCATED HEMOGLOBIN TEST. Modifiers: QW 3075F SYST BP GE 130 - 139MM HG. 3079F DIAST BP 80-89 MM HG. 3044F HG A1C LEVEL LT 7.0%. * Electronic signature of Cristina Frausto MD on 02/05/2025 at 08:58 AM EST Sign off status: Pending * Provider: Cristina Frausto M.D. Date: 0 11/15/2023 Generated for Mandy garsia/Radha/eTransmitting on: 1 04/07/2024 08:58 AM EST History and Physical Notes * HPI (History of Present Illness) Category Sub-Category Detail Notes Category Not es Cardiology Short of Breath Chest Pain Palpitations Dizziness Examination Category Sub-Category Detail Notes Category Not es General Examination HEENT: unremarkable Heart: RSR, no ectopics Lungs: clear to auscultatio n Abdomen: soft and nontender, no organomegaly or masses Extremities: no leg edema General Appearance: NAD Skin: Neurologic Exam: Intact, gait normal Neck: supple, no lymphaden opathy, no carotid bruits Oral cavity: no lesions, mucosa m oist and WNL, no erythema Peripheral pulses: normal Back: mild dorsal kyphosis Chest: normal shape and exp ansion
--- OUTSIDE RECORDS SUMMARY | 2024-03-20 09:00 | XMS_ITS ---
Author Organization [facility] Address [address] [facility] [address] [place] [id number] Care Team Providers Care Senior Systems Engineer Name Role Phone Cristina Frausto Primary Care Provider Inna Laws Unavailable [phone] Allergies Allergen (clinical drug ingredient) Drug/Non Drug [...] Notes Glycohemoglobin A1c (in hous e) Reviewed date:03/21/2024 09:03:33 AM Interpretation:6 Performing Lab: Notes/Report: 6 glycohemoglobin 6.0% 5 - 6.5 % P-Comprehensive Metabolic Pa jennifer (CMP) Reviewed date:03/21/2024 09:10:09 AM Interpretation:gluc 110, alk phos 148 Performing Lab: Notes/Report: Test performed by [facility] [address] , [address], [place] [address] Jordin Phelps MD, Personal Financial Counselor CLIA: [id number] Sodium 143 135-145 mmol/L Potassium 4.9 3.5-5.3 mmol/L Chloride 105 97-108 mmol/L CO2 28 22-32 mmol/L Glucose 110 65-99 mg/dL BUN 16 8-23 mg/dL Creatinine 0.85 0.50-1.00 mg/dL Calcium 9.8 8.6-10.4 mg/dL eGFR by Creatinine 71 >59 mL/min/1.73m2 Protein 7.2 6.0-8.3 g/dL Albumin 4.4 3.5-5.3 g/dL Alkaline Phosphatase 148 35-121 IU/L ALT (SGPT) 20 <5-47 IU/L AST (SGOT) 17 <5-40 IU/L Bilirubin, Total 0.6 <0.2-1.2 mg/dL A/G Ratio 1.6 1.1-2.5 P-Microalbumin/Creatinine, R andom Urine Sample Reviewed date:03/21/2024 09:10:09 AM Interpretation:Normal Performing Lab: Notes/Report: Test performed by [facility] [employer] [address] [place] [address] , [address], [place] [address] Jordin Phelps MD, Personal Financial Counselor CLIA: [id number] Albumin/Creatinine Ratio, Urine <6.1 0-30 ug/m g Microalbumin, Urine, Random <0.3 Creatinine, Urine 48.7 REASON FOR VISIT 4 months, Needs labs, diabetic eye exam, & flu vaccine Medications Medication SIG (Take, Route, Frequency, Duration) Notes Start Date End Date Status Meclizine HCl 12.5 MG 1 orally bedtime prn 016 Active Ibuprofen 600 MG 1 tablet with food o r milk as needed Orally three times a day as needed; Duration: 60 days 08/09/2023 Active Xyzal Allergy 24HR 5 MG 1 tab(s) orally once a day (in the evening); Duration: 30 day(s) 01/29/2013 Active Losartan Potassium 50 MG 1 tab(s) orally once a day; Duration: 90 days 03/30/2021 Active Albuterol Sulfate HFA 108 (90 Base) MCG/ACT 1 puff Inhalation every 4 hrs, prn 03/21/2023 Active Vivelle-Dot 0.025 MG/24HR 1 PATCH applie d topically 2 times a week Active Cod Liver Oil w/Vit A & D - 1 cap(s) orally twice a day; Duration: 30 day(s) Active Turmeric 500MG DIRECTED ONCE DAILY PRN Active PreserVision AREDS 2 - as directed Orally Active Repatha 140 MG/ML 1 mL Subcutaneous ev rachael 2 weeks Active Problems Problem Type SNOMED Code ICD Code Onset Dates Problem Status W/U Status Risk Notes Problem Cardiac dysrhythmia (288992020) Cardiac dysrhythmia, unspecified (I49.9) Active confirmed Vital Signs Weight 186.0 lbs 03/20/2024 Blood pressure systolic 132 mm Hg 03/20/19 25 Blood pressure diastolic 74 mm Hg 025 Heart Rate 87 /min 03/20/2024 Height 64.75 in 03/20/2024 BMI 31.19 kg/m2 03/20/2024 Encounters Encounter Location Date Provider Diagnosis [facility] [address] [place] [phone] 03/20/2024 Cristina Frausto Type 2 diabetes mellitus without complication E11.9 ; Essential hypertension I10 and Cardiac dysrhythmia, unspecified I49.9 Assessments Encounter Date Diagnosis (ICD Code) Assessment Notes Treatment Notes Treatment Clinical Notes Section Notes 03/20/2024 Type 2 diabetes mellitus without complication (ICD-10 - E11.9) 03/20/2024 Essential hypertension (ICD-10 - I10) 03/20/2024 Cardiac dysrhythmia, unspecified (ICD-10 - I49.9) Plan Of Treatment Medication Medication Name Sig Start Date Stop Date Notes Losartan Potassium 50 MG 1 tab(s) orally once a day; Duration: 90 days 03/30/2021 Glimepiride 2 MG 1/2 tablet with yara kfast or the first main meal of the day Orally Once a day 05/31/2023 Next Appt Details Follow Up: 2 Months, Reason: Provider Name:Cristina John er, 02/19/2025 01:45:00 PM, [address] [facility], [address], [place], [id number], Progress Notes * DAV IVEYB:1950 (74 yo F)Acc No.[id number]:03/20/2024 Progress Notes Patient: VILMA LORENZANA Provider: Cristina Frausto M.D. :1950 A ge:73 Y S ex:Female Date:03/20/2024 Address:[facility] [place] [place], [id number] Subjective: * Chief Complaints: * 1 . 4 months. 2. Needs labs, diabetic eye exam, & flu vaccine. * HPI: C ardiology: The patient is here for a check up on Hypertension, Hyperlipidemia, and Diabetes. Pt states she has woke up the last 2 morning with sore throat. Pt states she is having episodes of dizziness and near syncope. See November note from Cardiology, Rene Olson PA-C. That note mentions Holter report showing Wenkebach and PAC's/PVC's. Las tsignificant episode of dizziness was prior to Xmas in [facility]. Cardiology follow-up is in May. Pt got her fasting labs drawn this morning. 73 year old female presents with c/o Dizziness. Denies : Chest Pain. D enies : Short of Breath. D enies : Palpitations. K nee/Sewell: c/o knee pain l eft side. * ROS: D ERMATOLOGY: no R aris. [...] Hospitalization/Major Diagno stic Procedure: S tepped on [facility]. * Family History: F ather: 70 yrs, septicemia, diagnosed with Heart Disease. M other: alive 93 yrs.?1 brother(s) , 1 sister(s) . 2 [...] cap(s) orally twice a day , Taking Albuterol Sulfate HFA 108 (90 Base) MCG/ACT Aerosol Solution 1 puff Inhalation every 4 hrs, prn , Taking Losartan Potassium 50 MG Tablet [...] day Orally Once a day , Taking Xyzal Allergy 24HR 5 MG Tablet 1 tab(s) orally once a day (in the evening) , Discontinued Patanase 0.6 % Solution 2 spray(s) each nostril daily , Medication List reviewed and reconciled with the patient * Allergies: O xytetracycline HCl, Levaquin: myalgias, Cefuroxime Axetil: burned stomach, Dexamethasone: facial swelling, predniSONE: pain in neck and throat, Dexamethasone: redness in face and neck, tender to the touch, Zetia: depression, hurting, dizzy, high blood pressure. Objective: * Vitals: W t:186.0, Temp:98.1, BP:132/74, HR:87, Nurse:CARINA, Ht: 64.75, BMI:31.19. * Examination: G eneral Examination: General Appearance: [...] without complication - E11.9 (Primary) 2 . E ssential hypertension - I10 3 . C ardiac dysrhythmia, unspecified - I49.9 ? Plan: * Treatment: Value Reference Range A lbumin/Creatinine Ratio, Urine <6.1 0-30 - ug /mg * C reatinine, Urine 48.7 - mg/dL * M icroalbumin, Urine, Random <0.3 - mg/dL * Imelda Wakefield 03/21/2024 9:10:0 3 AM >See phone encounter ?LAB: Glycohemoglobin A1c (in house) (Collection Date & Time - 03/20/2024)?6 * Value Reference Range g lycohemoglobin 6.0% 5 - 6.5 % * Coco Escamilla 03/20/2024 2:12 :07 PM > , Provider reviewed results while patient in office. 2.?Essential hypertension? Refill Losartan Potassium Tablet, 50 MG, 1 tab(s), orally, once a day, 90 days, 90 Tablet, Refills 1.?LAB: P-Comprehensive Metabolic Panel (CMP) (Collection Date & Time - 03/20/2024 09:38 AM)?gluc 110, alk phos 148* Value Reference Range A /G Ratio 1.6 1.1-2.5 - * A lbumin 4.4 3.5-5.3 - g/dL * A lkaline Phosphatase 148 H 35-121 - IU/L * A LT (SGPT) 20 <5-47 - IU/L * A ST (SGOT) 17 <5-40 - IU/L * B ilirubin, Total 0.6 <0.2-1.2 - mg/dL * B UN 16 8-23 - mg/dL * C alcium 9.8 8.6-10.4 - mg/dL * C hloride 105 97-108 - mmol/L * C O2 28 22-32 - mmol/L * C reatinine 0.85 0.50-1.00 - mg/dL * G lucose 110 H 65-99 - mg/dL * P otassium 4.9 3.5-5.3 - mmol/L * S odium 143 135-145 - mmol/L * P rotein 7.2 6.0-8.3 - g/dL * e GFR by Creatinine 71 >59 - mL/min/1.73m2 * Imelda Wakefield 03/21/2024 9:10:0 3 AM >See phone encounter ?LAB: P-Microalbumin/Creatinine, Random Urine Sample (Collection Date & Time - 03/20/2024 09:38 AM)?Normal* Value Reference Range A lbumin/Creatinine Ratio, Urine <6.1 0-30 - ug /mg * C reatinine, Urine 48.7 - mg/dL * M icroalbumin, Urine, Random <0.3 - mg/dL * Imelda Wakefield 03/21/2024 9:10:0 3 AM >See phone encounter * Procedure Codes: G 2211 Complex e/[place], [address] GLYCATED HEMOGLOBIN TEST, Modifiers: QW * Follow Up: 2 Months * Images: Billing Information: * Visit Code: 90085 Office Visit, Est Pt., Level 4. * Procedure Codes: G2211 Complex e/[place]. [address] GLYCATED HEMOGLOBIN TEST. Modifiers: QW * Electronic signature of Cristina Frausto MD on 02/05/2025 at 08:58 AM EST Sign off status: Pending * Provider: Cristina Frausto M.D. Date: 0 03/20/2024 Generated for Freemani ng/Radha/eTransmitting on: 04/07/2024 08:58 AM EST History and Physical Notes * HPI (History of Present Illness) Category Sub-Category Detail Notes Category Not es Cardiology Short of Breath Chest Pain Palpitations Dizziness Knee/Sewell knee pain left side Examination Category Sub-Category Detail Notes Category Not [...]
--- OUTSIDE RECORDS SUMMARY | 2024-05-22 10:30 | XMS_ITS ---
Author Organization [facility] Address [address] [facility] [address] [place] [id number] Care Team Providers Care Corporate Recruiter Name Role Phone Cristina Frausto Primary Care Provider Inna Laws Unavailable [phone] Allergies Allergen (clinical drug ingredient) Drug/Non Drug [...] Active Results Component Value Reference Range Notes Glucose (In-House) Reviewed date:05/22/2024 05:58:20 PM Interpretation: Performing Lab: Notes/Report: blood glucose 128 74 - 106 mg/dL Glycohemoglobin A1c (in hous e) Reviewed date:05/22/2024 05:58:28 PM Interpretation: Performing Lab: Notes/Report: glycohemoglobin 6.2% 5 - 6.5 % REASON FOR VISIT 2 weeks Medications Medication SIG (Take, Route, Frequency, Duration) Notes Start Date End Date Status Repatha 140 MG/ML 1 mL Subcutaneous ev rachael 2 weeks Active Cod Liver Oil w/Vit A & D - 1 cap(s) ora lly twice a day; Duration: 30 day(s) Active Albuterol Sulfate HFA 108 (90 Base) MCG/ACT 1 puff Inhalation every 4 hrs, prn 03/21/2023 Active Vivelle-Dot 0.025 MG/24HR 1 PATCH applie d topically 2 times a week Active Turmeric 500MG DIRECTED ONCE JES LY PRN Active Betamethasone Valerate 0.1 % 1 application Externally Once a day 05/22/2024 Active Meclizine HCl 12.5 MG 1 orally bedtime prn 016 Active Xyzal Allergy 24HR 5 MG 1 tab(s) orally once a day (in the evening); Duration: 30 day(s) 01/29/2013 Active PreserVision AREDS 2 - as directed Orally Active Losartan Potassium 50 MG 1 tab(s) orally once a day; Duration: 90 days 03/30/2021 Active Ibuprofen 600 MG 1 tablet with food o r milk as needed Orally three times a day as needed; Duration: 60 days 08/09/2023 Active Vital Signs Weight 183.2 lbs 05/22/2024 Blood pressure systolic 130 mm Hg 05/23/19 25 Blood pressure diastolic 80 mm Hg 025 Heart Rate 68 /min 05/22/2024 Height 64.75 in 05/22/2024 BMI 30.72 kg/m2 05/22/2024 Encounters Encounter Location Date Provider Diagnosis [facility] [address] [facility] [address] [facility] [address] [place] [id number] 05/22/2024 Cristina Frausto Type 2 diabetes krys itus without complication E11.9 ; Hyperlipidemia associated with type 2 diabetes mellitus E11.69 and Foot dermatitis L30.9 Assessments Encounter Date Diagnosis (ICD Code) Assessment Notes Treatment Notes Treatment Clinical Notes Section Notes 05/22/2024 Type 2 diabetes mellitus without complication (ICD-10 - E11.9) 05/22/2024 Hyperlipidemia associated with type 2 diabetes mellitus (ICD-10 - E11.69) 05/22/2024 Foot dermatitis (ICD-10 - L30.9) Plan Of Treatment Medication Medication Name Sig Start Date Stop Date Notes Betamethasone Valerate 0.1 % 1 applicati on Externally Once a day 05/22/2024 Next Appt Details Follow Up: 3 Months, Reason: Provider Name:Cristina John er, 02/19/2025 01:45:00 PM, [address] [facility], [address], [place], [id number], Progress Notes * JENNIFER IVEY:1950 (74 yo F)Acc No.[id number]:05/22/2024 Progress Notes Patient: VILMA LORENZANA Provider: Cristina Frausto M.D. :1950 A ge:73 Y S ex:Female Date:05/22/2024 Address:[facility] [address] [place], [id number] Subjective: * Chief Complaints: * 1 . 2 weeks. * HPI: E ndocrinology: The pt is here today for a follow up on Diabetes. Pt states she has stopped the Glimepiride. Pt states she is feeling better and has not had any more near syncope spells since it. Pt states her glucose has been running in the 110's-120's. * ROS: D ERMATOLOGY: no R aris. [...] Adames 01/29/2018, RT Cataract 10/29/2018, LT Cataract 12/10/2018, blepharoplasty OU, Dr. Zurita 04/01/24. * Hospitalization/Major Diagno stic Procedure: [place] [facility] [facility] [place] * Family History: F ather: 70 [...] Inhalation every 4 hrs, prn , Taking Ibuprofen 600 MG Tablet 1 tablet with food or milk as needed Orally three times a day as needed , Taking Meclizine HCl 12.5 MG Tablet 1 orally bedtime prn , Taking Xyzal Allergy 24HR 5 [...] high blood pressure. Objective: * Vitals: W t:183.2, Temp:97.8, BP:130/80, HR:68, Nurse:CARINA, Ht: 64.75, BMI:30.72. * Examination: G eneral Examination: General Appearance: N AD. H EENT: p eriorbital areas look great! Healing well. O ral cavity: n o lesions, mucosa moist and [...] B ack: mild dorsal kyphosis. E xtremities: no leg edema. Patchy areas of dermatitis of the right foot, especially lateral right heel.? Assessment: * Assessment: 1. T ype 2 diabetes mellitus without complication - E11.9 (Primary) 2 . H yperlipidemia associated with type 2 diabetes mellitus - E11.69 3 . F oot dermatitis - L30.9 Plan: * Treatment: Value Reference Range b lood glucose 128 74 - 106 mg/dL * Coco Escamilla 05/22/2024 5:07 :38 PM > 1+ Provider reviewed results while patient in office. ?LAB: Glycohemoglobin A1c (in house) (Collection Date & Time - 05/22/2024)* Value Reference Range g lycohemoglobin 6.2% 5 - 6.5 % * Coco Escamilla 05/22/2024 5:08 :19 PM > 1+ Provider reviewed results while patient in office. 2.?Foot dermatitis? Start Betamethasone Valerate Cream, 0.1 %, 1 application, Externally, Once a day, 60 Gram, Refills 0.?? * Procedure Codes: G 2211 Complex e/[place], [address] CAPILLARY BLOOD DRAW, 78522 GLYCATED HEMOGLOBIN TEST, Modifiers: QW , [address] GLUCOSE TEST, 3044F HG A1C LEVEL LT 7.0%, G8752 MOST RECENT SYSTOLIC BP < 140MM HG, G8754 MOST RECENT DIASTOLIC BP < 90MM HG * Follow Up: 3 Months * Images: Billing Information: * Visit Code: 37316 Office Visit, Est Pt., Level 4. * Procedure Codes: G2211 Complex e/[place]. [address] CAPILLARY BLOOD DRAW. 52652 GLYCATED HEMOGLOBIN TEST. Modifiers: QW 93706 GLUCOSE TEST. 3044F HG A1C LEVEL LT 7.0%. G8752 MOST RECENT SYSTOLIC BP < 140MM HG. G8754 MOST RECENT DIASTOLIC BP < 90MM HG. * Electronic signature of Cristina Frausto MD on 02/05/2025 at 08:58 AM EST Sign off status: Pending * Provider: Cristina Frausto M.D. Date: 0 05/22/2024 Generated for Mandy garsia/Radha/eTyaritzasmitting on: 1 04/07/2024 08:58 AM EST History and Physical Notes * Examination Category Sub-Category Detail Notes Category Not es General Examination HEENT: periorbital areas look great! Healing well Heart: RSR, no ectopics Lungs: clear to auscultatio n Abdomen: soft and nontender, no organomegaly or masses Extremities: no leg edema. Patchy areas of dermatitis of the right foot, especially lateral right heel General Appearance: NAD Skin: Neurologic Exam: Intact, gait normal Neck: supple, no lymphaden opathy, no carotid bruits Oral cavity: no lesions, mucosa m oist and WNL, no erythema Peripheral pulses: normal Back: mild dorsal kyphosis Chest: normal shape and exp ansion
--- OUTSIDE RECORDS SUMMARY | 2024-09-04 09:15 | XMS_ITS ---
Author Organization [facility] Address [address] [facility] [address] [place] [id number] Care Team Providers Care Cork Insulation Installer Name Role Phone Cristina Frausto Primary Care Provider [phone] Inna Laws Unavailable [phone] Allergies Allergen (clinical drug ingredient) Drug/Non Drug [...] Notes Glycohemoglobin A1c (in hous e) Reviewed date:10/01/2024 12:50:52 PM Interpretation:6.3 Performing Lab: Notes/Report: 6.3 glycohemoglobin 6.3% 5 - 6.5 % P-Comprehensive Metabolic Pa jennifer (CMP) Reviewed date:10/01/2024 12:50:52 PM Interpretation:gluc 116, alk phos 178 Performing Lab: Notes/Report: Test performed by [facility] , [address], [place] [address] Jordin Phelps MD, Food Service Manager CLIA: [id number] Sodium 141 135-145 mmol/L Potassium 5.2 3.5-5.3 mmol/L Chloride 104 97-108 mmol/L CO2 25 22-32 mmol/L Glucose 116 65-99 mg/dL BUN 16 8-23 mg/dL Creatinine 0.82 0.50-1.00 mg/dL Calcium 9.3 8.6-10.4 mg/dL eGFR by Creatinine 74 >59 mL/min/1.73m2 Protein 6.6 6.0-8.3 g/dL Albumin 4.3 3.5-5.3 g/dL Alkaline Phosphatase 178 35-121 IU/L ALT (SGPT) 30 <5-47 IU/L AST (SGOT) 26 <5-40 IU/L Bilirubin, Total 0.5 <0.2-1.2 mg/dL A/G Ratio 1.9 1.1-2.5 P-Lipid Panel Reviewed date:10/01/2024 12:50:52 PM Interpretation:Normal Performing Lab: Notes/Report: Test performed by [facility], [address] , [address], [place] [address] Jordin Phelps MD, Food Service Manager CLIA: [id number] Cholesterol 155 <200 mg/dL Triglycerides 125 <150 mg/dL HDL Cholesterol 48 >39 mg/dL Cholesterol / HDL Ratio 3.23 0.00-4.44 Ratio Non-HDL Cholesterol 107 <130 mg/dL LDL Cholesterol (Calculation) 82 <130 mg/dL LDL Cholesterol Levels* Less than 100 mg/dL Optimal 100 to 129 mg/dL Near Optimal/ Above Optimal 130 to 159 mg/dL Borderline High 160 to 189 mg/dL High 190 mg/dL and above Very High * Categories as recommended by the 2004 ATPIII guidelines LDL/HDL Ratio 1.7 <3.3 Ratio LDL Cholesterol Patient History Test Date: 06/22/2023 LDL Results: 190 Units: mg/dL % Change: - Test Date: 08/09/2023 LDL Results: 168 Units: mg/dL % Change: -11% Test Date: 09/05/2024 LDL Results: 82 Units: mg/dL % Change: -51% REASON FOR VISIT 3 month f/u, Needs labs & diabetic eye exam Medications Medication SIG (Take, Route, Frequency, Duration) Notes Start Date End Date Status Meclizine HCl 12.5 MG 1 orally bedtime prn 016 Active Ibuprofen 600 MG 1 tablet with food o r milk as needed Orally three times a day as needed; Duration: 60 days 08/09/2023 Active Betamethasone Valerate 0.1 % 1 application Externally Once a day 05/22/2024 Active Losartan Potassium 50 MG 1 tab(s) orally once a day; Duration: 90 days 03/30/2021 Active Xyzal Allergy 24HR 5 MG 1 tab(s) orally once a day (in the evening); Duration: 30 days 01/29/2013 Active Vivelle-Dot 0.025 MG/24HR 1 PATCH applie d topically 2 times a week Active Albuterol Sulfate HFA 108 (90 Base) MCG/ACT 1 puff Inhalation every 4 hrs, prn 03/21/2023 Active Cod Liver Oil w/Vit A & D - 1 cap(s) ora lly twice a day; Duration: 30 day(s) Active Repatha 140 MG/ML 1 mL Subcutaneous ev rachael 2 weeks Active Aspirin 81 81 MG 1 tablet Orally Once a day Active PreserVision AREDS 2 - as directed Orally Active Vitamin B-12 1000 MCG 1 tablet Orally On ce a day Active Problems Problem Type SNOMED Code ICD Code Onset Dates Problem Status W/U Status Risk Notes Problem Obesity (624724348) Obesity (BMI 30-39.9) (E66.9) Active confirmed Vital Signs Weight 183.8 lbs 09/04/2024 Blood pressure systolic 128 mm Hg 09/05/19 25 Blood pressure diastolic 80 mm Hg 025 Heart Rate 84 /min 09/04/2024 Height 64.75 in 09/04/2024 BMI 30.82 kg/m2 09/04/2024 Encounters Encounter Location Date Provider Diagnosis [facility] [address] [facility] [address] [facility] [address] [place] [id number] 09/04/2024 Cristina Frausto Type 2 diabetes krys itus without complication E11.9 ; Mixed hyperlipidemia E78.2 and Obesity (BMI 30-39.9) E66.9 Assessments Encounter Date Diagnosis (ICD Code) Assessment Notes Treatment Notes Treatment Clinical Notes Section Notes 09/04/2024 Type 2 diabetes mellitus without complication (ICD-10 - E11.9) 09/04/2024 Mixed hyperlipidemia (ICD-10 - E78.2) 09/04/2024 Obesity (BMI 30-39.9) (ICD-10 - E66.9) Plan Of Treatment Next Appt Details Follow Up: 4 Months, Reason: Provider Name:Cristina John er, 02/19/2025 01:45:00 PM, [address] [facility] 36 [facility], [address], [place], [phone], Progress Notes * DAV IVEYB:1950 (74 yo F)Acc No.[id number]:09/04/2024 Progress Notes Patient: VILMA LORENZANA Provider: Cristina Frausto M.D. :1950 A ge:73 Y S ex:Female Date:09/04/2024 Address[address], [id number] Subjective: * Chief Complaints: * 1 . 3 month f/u. 2. Needs labs & diabetic eye exam. * HPI: C ardiology: The patient is here for a check up on Hypertension, Hyperlipidemia, and Diabetes. Pt states she is doing good and denies any new concerns. Pt had fasting labs drawn this morning. Denies : Chest Pain. D enies : [...] Hospitalization/Major Diagno stic Procedure: S tepped on [facility] [place] 10/19/2019. * Family History: F ather: 70 [...] not smoke. krishan. * Medications: T aking Aspirin 81 81 MG Tablet Delayed Release 1 tablet Orally Once a day , Taking Vitamin B-12 1000 MCG Tablet 1 tablet Orally Once a day , Taking PreserVision AREDS 2 - Capsule as directed Orally , Taking Repatha 140 MG/ML Solution Prefilled Syringe 1 mL Subcutaneous every 2 weeks , Taking Vivelle-Dot 0.025 MG/24HR Patch Twice Weekly 1 PATCH applied topically 2 times a week , Taking Cod Liver Oil w/Vit A [...] Tablet 1 orally bedtime prn , Taking Losartan Potassium 50 MG Tablet 1 tab(s) orally once a day , Taking Betamethasone Valerate 0.1 % Cream 1 application Externally Once a day , Taking Xyzal Allergy 24HR 5 MG Tablet 1 tab(s) orally once a day (in the evening) , Discontinued Turmeric 500MG DIRECTED ONCE DAILY PRN , Medication List reviewed and reconciled with the patient * Allergies: O xytetracycline HCl, Levaquin: myalgias, Cefuroxime Axetil: burned stomach, Dexamethasone: facial swelling, predniSONE: pain in neck and throat, Dexamethasone: redness in face and neck, tender to the touch, Zetia: depression, hurting, dizzy, high blood pressure. Objective: * Vitals: W t: 183.8, Temp: 97.9, BP: 128/80, HR: 84, Nurse: CARINA, Ht: 64.75, BMI:30.82. * Examination: G eneral Examination: General Appearance: N AD. H EENT: H ealing well.?Oral cavity: n o lesions, mucosa moist and [...] kyphosis. E xtremities: n o leg edema. Patchy areas of dermatitis of the lateral right foot, and lateral right heel. Assessment: * Assessment: 1. T ype 2 diabetes mellitus without complication - E11.9 (Primary) 2 . M ixed hyperlipidemia - E78.2 3 . O besity (BMI 30-39.9) - E66.9 Plan: * Treatment: Value Reference Range g lycohemoglobin 6.3% 5 - 6.5 % * Coco Escamilla 09/04/2024 09 :53:36 AM EDT > Arely Cash 10/01/2024 12:50:43 PM EDT > See phone encounter ?LAB: P-Comprehensive Metabolic Panel (CMP) (Collection Date & Time - 09/05/2024 08:42 AM)?gluc 116, alk phos 178* Value Reference Range A /G Ratio 1.9 1.1-2.5 - * A lbumin 4.3 3.5-5.3 - g/dL * A lkaline Phosphatase 178 H 35-121 - IU/L * A LT (SGPT) 30 <5-47 - IU/L * A ST (SGOT) 26 <5-40 - IU/L * B ilirubin, Total 0.5 <0.2-1.2 - mg/dL * B UN 16 8-23 - mg/dL * C alcium 9.3 8.6-10.4 - mg/dL * C hloride 104 97-108 - mmol/L * C O2 25 22-32 - mmol/L * C reatinine 0.82 0.50-1.00 - mg/dL * G lucose 116 H 65-99 - mg/dL * P otassium 5.2 3.5-5.3 - mmol/L * S odium 141 135-145 - mmol/L * P rotein 6.6 6.0-8.3 - g/dL * e GFR by Creatinine 74 >59 - mL/min/1.73m2 * Arely Cash 10/02/19 12:50:43 PM EDT > See phone encounter 2.?Mixed hyperlipidemia?LAB: P-Lipid Panel (Collection Date & Time - 09/05/2024 08:42 AM)?Normal* Value Reference Range C holesterol / HDL Ratio 3.23 0.00-4.44 - Ratio * C holesterol 155 <200 - mg/dL * H DL Cholesterol 48 >39 - mg/dL * L DL Cholesterol (Calculation) 82 <130 - mg/d L * L DL/HDL Ratio 1.7 <3.3 - Ratio * N on-HDL Cholesterol 107 <130 - mg/dL * T riglycerides 125 <150 - mg/dL * Arely Cash Ann 10/02/19 25 12:50:43 PM EDT > See phone encounter * Procedure Codes: G 2211 Complex e/[place], [address] GLYCATED HEMOGLOBIN TEST, Modifiers: QW , 1036F TOBACCO NON-USER, 3044F HG A1C LEVEL LT 7.0%, G8783 BP SCR PRFRM RCMDD DEFIND SCR INTVL, G8752 MOST RECENT SYSTOLIC BP < 140MM HG, G8754 MOST RECENT DIASTOLIC BP < 90MM HG, 3017F COLORECTAL CA SCREEN DOC REV * Preventive Medicine: Screening / Special Tests: C olonoscopy 1 03/31/2017, diverticulosis, repeat 10 years. * Follow Up: 4 Months * Images: Billing Information: * Visit Code: 85775 Office Visit, Est Pt., Level 3. * Procedure Codes: G2211 Complex e/[place]. [address] GLYCATED HEMOGLOBIN TEST. Modifiers: QW 1036F TOBACCO NON-USER. 3044F HG A1C LEVEL LT 7.0%. G8783 BP SCR PRFRM RCMDD DEFIND SCR INTVL. G8752 MOST RECENT SYSTOLIC BP < 140MM HG. G8754 MOST RECENT DIASTOLIC BP < 90MM HG. 3017F COLORECTAL CA SCREEN DOC REV. * Electronic signature of Cristina Frausto MD on 02/05/2025 at 08:57 AM EST Sign off status: Pending * Provider: Cristina Frausto M.D. Date: 0 09/04/2024 Generated for Mandy garsia/Radha/Rafalitting on: 04/07/2024 08:57 AM EST History and Physical Notes * HPI (History of Present Illness) Category Sub-Category Detail Notes Category Not es Cardiology Short of Breath Chest Pain Palpitations Dizziness Examination Category Sub-Category Detail Notes Category Not es General Examination HEENT: Healing well Heart: RSR, no ectopics Lungs: clear to auscultatio n Abdomen: soft and nontender, no organomegaly or masses Extremities: no leg edema. Patchy areas of dermatitis of the lateral right foot, and lateral right heel General Appearance: NAD Skin: Neurologic Exam: Intact, gait normal Neck: supple, no lymphaden opathy, no carotid bruits Oral cavity: no lesions, mucosa m oist and WNL, no erythema Peripheral pulses: normal Back: mild dorsal kyphosis Chest: normal shape and exp ansion
--- OUTSIDE RECORDS SUMMARY | 2024-11-20 10:00 | XMS_ITS ---
Author Organization [facility] Address [address] [facility] [address] [place] [id number] Care Team Providers Care Gmat Instructor Name Role Phone Cristina Frausto Primary Care Provider Inna Laws Unavailable [phone] Allergies Allergen (clinical drug ingredient) Drug/Non Drug [...] dizzy, high blood pressure Drug Allergy Active REASON FOR VISIT RT foot derm, due for bone density screening Medications Medication SIG (Take, Route, Frequency, Duration) Notes Start Date End Date Status Nystatin 590792 UNIT/GM 1 application Ex ternally Twice a day 11/20/2024 Active Xyzal Allergy 24HR 5 MG 1 tab(s) orally once a day (in the evening); Duration: 30 days 01/29/2013 Active Losartan Potassium 50 MG 1 tab(s) orally once a day; Duration: 90 days 03/30/2021 Active Betamethasone Valerate 0.1 % 1 application Externally Once a day 05/22/2024 Active Meclizine HCl 12.5 MG 1 orally bedtime prn 016 Active Ibuprofen 600 MG 1 tablet with food o r milk as needed Orally three times a day as needed; Duration: 60 days 08/09/2023 Active Albuterol Sulfate HFA 108 (90 Base) MCG/ACT 1 puff Inhalation every 4 hrs, prn 03/21/2023 Active Cod Liver Oil w/Vit A & D - 1 cap(s) ora lly twice a day; Duration: 30 day(s) Active Vivelle-Dot 0.025 MG/24HR 1 PATCH applie d topically 2 times a week Active Repatha 140 MG/ML 1 mL Subcutaneous ev rachael 2 weeks Active PreserVision AREDS 2 - as directed Orally Active Vitamin B-12 1000 MCG 1 tablet Orally On ce a day Active Aspirin 81 81 MG 1 tablet Orally Once a day Active Vital Signs Weight 183.6 lbs 11/20/2024 Blood pressure systolic 140 mm Hg 11/21/19 25 Blood pressure diastolic 80 mm Hg 025 Heart Rate 70 /min 11/20/2024 Height 64.75 in 11/20/2024 BMI 30.79 kg/m2 11/20/2024 Encounters Encounter Location Date Provider Diagnosis [facility] [address] [facility] [address] [facility] [address] [place] [id number] 11/20/2024 Cristina Frausto Foot dermatitis L30. 9 Assessments Encounter Date Diagnosis (ICD Code) Assessment Notes Treatment Notes Treatment Clinical Notes Section Notes 11/20/2024 Foot dermatitis (ICD-10 - L30.9) continue Betamethasone and occlusive dressings. Add nystatin. Plan Of Treatment Medication Medication Name Sig Start Date Stop Date Notes Nystatin 419393 UNIT/GM 1 application Ex ternally Twice a day 11/20/2024 Treatment Notes Assessment Notes Foot dermatitis continue Betamethaso ne and occlusive dressings. Add nystatin. Next Appt Details Follow Up: 4 Weeks, Reason: Provider Name:Cristina John er, 02/19/2025 01:45:00 PM, [facility] [facility] [address] [facility], [address], [place], [phone], Progress Notes * DAV IVEYB:1950 (74 yo F)Acc No.[id number]:11/20/2024 Progress Notes Patient: VILMA LORENZANA Provider: Cristina Frausto M.D. :1950 A ge:73 Y S ex:Female Date:11/20/2024 Address:[facility] [address] [place], [id number] Subjective: * Chief Complaints: * 1 . RT foot derm. 2. Due for bone density screening. * HPI: D ermatology: 73 year old female presents with c/o rash T he pt is here today for a follow-up on the rash on the right foot. Pt states have gotten worse. Pt states she is using the steroid cream (Betamethasone). Pt states she has also tried soaks and lidex cream without any effect. * ROS: D ERMATOLOGY: no R aris. [...] Hospitalization/Major Diagno stic Procedure: [place] [facility] [place]. * Family History: F ather: 70 [...] Tablet 1 orally bedtime prn , Taking Betamethasone Valerate 0.1 % Cream 1 application Externally Once a day , Taking Losartan Potassium 50 MG Tablet 1 tab(s) orally once a day , Taking Xyzal Allergy 24HR 5 MG Tablet 1 tab(s) orally once a day (in the evening) , Medication List reviewed and reconciled with the patient * Allergies: O xytetracycline HCl, Levaquin: myalgias, Cefuroxime Axetil: burned stomach, Dexamethasone: facial swelling, predniSONE: pain in neck and throat, Dexamethasone: redness in face and neck, tender to the touch, Zetia: depression, hurting, dizzy, high blood pressure. Objective: * Vitals: W t: 183.6, Temp: 98.1, BP: 140/80, HR: 70, Nurse: CARINA, Ht: 64.75, BMI:30.79. * Examination: G eneral Examination: Extremities: r ight foot with erythematous rash at the heel and at the base of the toes. At the base of the toes it is marginated (fungal component?).. ? Assessment: * Assessment: 1. F oot dermatitis - L30.9 (Primary) Plan: * Treatment: * Procedure Codes: G 2211 Complex e/m visit add on * Follow Up: 4 Weeks * Images: Billing Information: * Visit Code: 46067 Office Visit, Est Pt., Level 3. * Procedure Codes: G2211 Complex e/m visit add on. * Electronic signature of Cristina Frausto MD on 02/05/2025 at 08:57 AM EST Sign off status: Pending * Provider: Cristina Frausto M.D. Date: 11/20/2024 Generated for Mandy garsia/Radha/eTransmitting on: 1 04/07/2024 08:57 AM EST History and Physical Notes * HPI (History of Present Illness) Category Sub-Category Detail Notes Category Not es Dermatology rash The pt is here t [place] for a follow-up on the rash on the right foot. Pt states have gotten worse. Pt states she is using the steroid cream (Betamethasone). Pt states she has also tried soaks and lidex cream without any effect Examination Category Sub-Category Detail Notes Category Not es General Examination Extremities: right foot w ith erythematous rash at the heel and at the base of the toes. At the base of the toes it is marginated (fungal component?).
--- OUTSIDE RECORDS SUMMARY | 2024-12-16 06:30 | XMS_ITS ---
[facility] Address [address] [facility] [address] [place] [id number] Care Team Providers Care Manager Architecture Name Role Phone Cristina Frausto Primary Care Provider Inna Laws Unavailable [phone] Allergies Allergen (clinical drug ingredient) Drug/Non Drug [...] pressure Drug Allergy Active REASON FOR VISIT right foot rash Medications Medication SIG (Take, Route, Frequency, Duration) Notes Start Date End Date Status Doxycycline Hyclate 100 MG 1 capsule Ora lly twice a day; Duration: 10 days 12/16/2024 Active Aspirin 81 81 MG 1 tablet Orally Once a day Active Xyzal Allergy 24HR 5 MG 1 [...] twice a day; Duration: 30 day(s) Active Meclizine HCl 12.5 MG 1 orally bedtime prn 016 Active Vivelle-Dot 0.025 MG/24HR 1 PATCH applie d topically 2 times a week Active Repatha 140 MG/ML 1 mL Subcutaneous ev rachael 2 weeks Active PreserVision AREDS 2 - as directed Orally Active Vitamin B-12 1000 MCG 1 tablet Orally Once a day Active Vital Signs Weight 182.2 lbs 12/16/2024 Blood pressure systolic 130 mm Hg 12/17/19 25 Blood pressure diastolic 70 mm Hg 025 Heart Rate 77 /min 12/16/2024 Height 64.75 in 12/16/2024 BMI 30.55 kg/m2 12/16/2024 Encounters Encounter Location Date Provider Diagnosis [facility] [address] [facility] [address] [facility] [address] [place] [id number] 12/16/2024 R Farrukh Laws Dermatitis L3 0.9 Assessments Encounter Date Diagnosis (ICD Code) Assessment Notes Treatment Notes Treatment Clinical Notes Section Notes 12/16/2024 Dermatitis (ICD-10 - L30.9) She has fluocinonide 0.05% cream at home that she uses for eczema and will start using this on her foot. Add doxycycline for potential secondary bacterial infection. Plan Of Treatment Medication Medication Name Sig Start Date Stop Date Notes Doxycycline Hyclate 100 MG 1 capsule Ora lly twice a day; Duration: 10 days 12/16/2024 Nystatin 910831 UNIT/GM 1 application Ex ternally Twice a day 11/20/2024 Betamethasone Valerate 0.1 % 1 applicati on Externally Once a day 05/22/2024 Treatment Notes Assessment Notes Dermatitis She has fluocinonide 0.05% cream at home that she uses for eczema and will start using this on her foot. Add doxycycline for potential secondary bacterial infection. Next Appt Details Follow Up: prn, Reason: Provider Name:Cristina John er, 02/19/2025 01:45:00 PM, [address] [facility] [address] [facility], [address], [place], [id number], Progress Notes * JENNIFER IVEY:1950 (74 yo F)Acc No.[id number]:12/16/2024 Progress Notes Patient: VILMA LORENZANA Provider: Inna Laws M.D. :1950 A ge:74 Y S ex:Female Date:12/16/2024 Address:[facility] [address] [place], [id number] Pcp:Cristina Frausto Subjective: * Chief Complaints: * 1 . Right foot rash. * HPI: D ermatology: She has been following with Dr. Frausto for a recurring rash on her right foot for the past couple of months. She has been using betamethasone cream and nystatin. She states the rash appeared to be resolving up until yesterday when she had a sudden flareup of blisters on the dorsum of the foot. Minimal itching and some discomfort. * Medical History: H yperlipidemia, Allergic Rhinitis, [...] Diagno stic Procedure: S tepped on [facility] [place] 10[place]19/2019. * Family History: F [...] a day (in the evening) , Taking Nystatin 839109 UNIT/GM Cream 1 application Externally Twice a day , Medication List reviewed and reconciled with the patient * Allergies: O xytetracycline HCl, Levaquin: myalgias, Cefuroxime Axetil: burned stomach, Dexamethasone: facial swelling, predniSONE: pain in neck and throat, Dexamethasone: redness in face and neck, tender to the touch, Zetia: depression, hurting, dizzy, high blood pressure. Objective: * Vitals: W t: 182.2, Temp: 97.8, BP: 130/70, HR: 77, Nurse: claire, Ht: 64.75, BMI:30.55. * Examination: G eneral Examination: Extremities: O n the dorsum of the distal right foot, there is a macular vesicular rash which is mostly dry. No drainage. Mild erythema.. ? Assessment: * Assessment: 1. D ermatitis - L30.9 (Primary) Plan: * Treatment: * Procedure Codes: G 2211 Complex e/[place], 1036F TOBACCO NON-USER * Follow Up: p rn * Images: Billing Information: * Visit Code: 26934 Office Visit, Est Pt., Level 3. * Procedure Codes: G2211 Complex e/m visit add on. 1036F TOBACCO NON-USER. * Electronic signature of Inna Laws MD on 02/05/2025 at 08:58 AM EST Sign off status: Pending * Provider: Inna Laws M.D. Date: 0 12/16/2024 Generated for Mandy garsia/Radha/Kristen on: 04/07/2024 08:58 AM EST History and Physical Notes * Examination Category Sub-Category Detail Notes Category Not es General Examination Extremities: On the dorsu m of the distal right foot, there is a macular vesicular rash which is mostly dry. No drainage. Mild erythema.
--- OUTSIDE RECORDS SUMMARY | 2025-01-22 08:30 | XMS_ITS ---
[facility] Address [address] [facility] [address] [place] [id number] Care Team Providers Care Field Laboratory Operator Name Role Phone Cristina Frausto Primary Care Provider [phone] Inna Laws Unavailable [phone] Allergies Allergen (clinical drug ingredient) Drug/Non Drug [...] pressure Drug Allergy Active REASON FOR VISIT 1 month Medications Medication SIG (Take, Route, Frequency, Duration) Notes Start Date End Date Status Ibuprofen 600 MG 1 tablet with food o r milk as needed Orally three times a day as needed; Duration: 60 days 08/09/2023 Active Meclizine HCl 12.5 MG 1 orally bedtime prn 016 Active Losartan Potassium 50 MG 1 tab(s) orally once a day; Duration: 90 days 03/30/2021 Active Doxycycline Hyclate 100 MG 1 capsule Orally twice a day; Duration: 10 days 12/16/2024 Judd-Bob lees Fluocinonide 0.05 % 1 application Scales Inspector ally Twice a day prn 01/01/2025 Active Cod Liver Oil w/Vit A & D - 1 cap(s) orally twice a day; Duration: 30 day(s) Active Albuterol Sulfate HFA 108 (90 Base) MCG/ACT 1 puff Inhalation every 4 hrs, prn 03/21/2023 Active PreserVision AREDS 2 - as directed Orally Active Repatha 140 MG/ML 1 mL Subcutaneous ev rachael 2 weeks Active Vivelle-Dot 0.025 MG/24HR 1 PATCH applied topically 2 times a week Active Itraconazole 100 MG 2 capsules Orally On ce a day; Duration: 14 days 01/22/2025 Active Xyzal Allergy 24HR 5 MG 1 tab(s) orally once a day (in the evening); Duration: 90 days Active Aspirin 81 81 MG 1 tablet Orally Once a day Active Vitamin B-12 1000 MCG 1 tablet Orally On ce a day Active Problems Problem Type SNOMED Code ICD Code Onset Dates Problem Status W/U Status Risk Notes Problem Dermatitis (305808433) Foot dermatitis (L30.9) Active confirmed Vital Signs Weight 183.4 lbs 01/22/2025 Blood pressure systolic 148 mm Hg 01/23/20 25 Blood pressure diastolic 70 mm Hg 025 Heart Rate 78 /min 01/22/2025 Height 64.75 in 01/22/2025 BMI 30.75 kg/m2 01/22/2025 Encounters Encounter Location Date Provider Diagnosis [facility] [address] [facility] [address] [place], [place] [address], [place] [phone] 01/22/2025 Cristina Frausto Allergic rhinitis, unspecified allergic rhinitis type J30.9 ; Foot dermatitis L30.9 and Diplopia H53.2 Assessments Encounter Date Diagnosis (ICD Code) Assessment Notes Treatment Notes Treatment Clinical Notes Section Notes 01/22/2025 Allergic rhinitis, unspecified allergic rhinitis type (ICD-10 - J30.9) 01/22/2025 Foot dermatitis (ICD-10 - L30.9) 01/22/2025 Diplopia (ICD-10 - H53.2) Plan Of Treatment Medication Medication Name Sig Start Date Stop Date Notes Itraconazole 100 MG 2 capsules Orally On ce a day; Duration: 14 days 01/22/2025 Xyzal Allergy 24HR 5 MG 1 tab(s) orally once a day (in the evening); Duration: 90 days Pending Test Test Name Order Date MRI : Brain with and w/o contrast 2024 Next Appt Details Follow Up: 4 Weeks, Reason: Provider Name:Cristina John er, 02/19/2025 01:45:00 PM, [address], [address], [place], [place], [phone], Progress Notes * JENNIFER IVEY:1950 (74 yo F)Acc No.[id number]:01/22/2025 Progress Notes Patient: VILMA LORENZANA Provider: Cristina Frausto M.D. :1950 A ge:74 Y S ex:Female Date:01/22/2025 Address:[facility] [address] [place], [id number] Subjective: * Chief Complaints: * 1 . 1 month. * HPI: A nkle/Foot: 74 year old female presents with c/o Pain P t is here today for a 1 month f/u on her rt foot pain. Pt sts she no longer has much pain in her foot, but sts it now has a rash that is spreading . * ROS: C ONSTITUTIONAL: [facility]?, NO? Change in medication since last visit?, NO Are you taking antibiotics?, NO Are you taking steroids? YES, topical. ? D ERMATOLOGY: no R aris. n o [...] Procedure: S tepped [place] [facility] [place]. * Family History: F ather: 70 [...] Does not smoke. krishan. * Medications: T karlyg Aspirin 81 81 MG Tablet Delayed Release [...] a day (in the evening) , Taking Fluocinonide 0.05 % Cream 1 application Externally Twice a day prn , Not-Taking Doxycycline Hyclate 100 MG Capsule 1 capsule Orally twice a day , Medication List reviewed and reconciled with the patient * Allergies: O xytetracycline HCl, Levaquin: myalgias, Cefuroxime Axetil: burned stomach, Dexamethasone: facial swelling, predniSONE: pain in neck and throat, Dexamethasone: redness in face and neck, tender to the touch, Zetia: depression, hurting, dizzy, high blood pressure. Objective: * Vitals: W t: 183.4, Temp: 97.9, BP: 148/70, HR: 78, Nurse: amie, Ht: 64.75, BMI:30.75. * Examination: G eneral Examination: General Appearance: N AD. H EENT: L IGHT REFLEX IS ASSYMETRICAL. O ral cavity: n o lesions, mucosa [...] edema. Patchy areas of dermatitis of the anterior right foot. Assessment: * Assessment: 1. F oot dermatitis - L30.9 (Primary) 2 . A llergic rhinitis, unspecified allergic rhinitis type - J30.9 3 . D iplopia - H53.2 Plan: * Treatment: 2. A llergic rhinitis, unspecified allergic rhinitis type Refill Xyzal Allergy 24HR Tablet, 5 MG, 1 tab(s), orally, once a day (in the evening), 90 days, 90, Refills 1. 3. D iplopia I maging: MRI : Brain with and w/o contrast * Follow Up: 4 Weeks * Images: Billing Information: * Visit Code: 31187 Office Visit, Est Pt., Level 3. * Procedure Codes: * Electronic signature of Cristina Frausto MD on 02/05/2025 at 08:58 AM EST Sign off status: Pending * Provider: Cristina Frausto M.D. Date: 03/24/2024 Generated for Mandy garsia/Radha/eTransmitting on: 04/07/2024 08:58 AM EST History and Physical Notes * HPI (History of Present Illness) Category Sub-Category Detail Notes Category Not es Ankle/Foot Pain Pt is here today for a 1 month f/u on her rt foot pain. Pt sts she no longer has much pain in her foot, but sts it now has a rash that is spreading Examination Category Sub-Category Detail Notes Category Not es General Examination HEENT: LIGHT REFLEX IS ASSYM ETRICAL Heart: RSR, no ectopics Lungs: clear to auscultatio n Abdomen: soft and nontender, no organomegaly or masses Extremities: no leg edema. Patchy areas of dermatitis of the anterior right foot General Appearance: NAD Skin: Neurologic Exam: Intact, gait normal Neck: supple, no lymphaden opathy, no carotid bruits Oral cavity: no lesions, mucosa m oist and WNL, no erythema Peripheral pulses: normal Back: mild dorsal kyphosis Chest: normal shape and exp ansion
--- NOTE | 2025-02-05 08:52 | MR_ITS ---
FINAL REPORT CLINICAL HISTORY: blurred vision COMPARISON: None FINDINGS: Multiplanar MR imaging of the brain was performed without and with contrast. There are moderate to extensive foci of abnormal signal present in the deep white matter, both periventricular and subcortical. No enhancement is identified. There is no evidence of intracranial hemorrhage or mass. No abnormal extra-axial fluid collection is seen. The ventricular size is within normal limits. There is no evidence of shift of the midline structures. The posterior fossa and brainstem have an unremarkable appearance. No area of abnormal restricted diffusion is identified. No abnormal contrast enhancement is seen. Normal major vessel vascular flow voids are noted. IMPRESSION: Moderate to extensive abnormal signal in the periventricular and subcortical white matter, nonenhancing. In this age group this most likely represents changes of ischemic microvascular disease. Reviewed, Interpreted and Dictated by Ambrose Thurman MD Transcribed by Cinda Meng Authenticated and [facility]
--- OUTSIDE RECORDS SUMMARY | 2025-02-05 08:58 | XMS_ITS | Patient Health Record ---
Author Organization [facility] Address [address] [facility] [address] [place] [id number] Care Team Providers Care Repair Technician Name Role Phone Cristina Frausto Primary Care Provider Inna Laws Unavailable [phone] Allergies Allergen (clinical drug ingredient) Drug/Non Drug [...] 178 Performing Lab: Notes/Report: Test performed by [facility] , [address], [place] [address] Jordin Phelps MD, Toe Closing Machine Tender CLIA: [id number] Sodium 141 135-145 mmol/L Potassium 5.2 3.5-5.3 [...] Interpretation:Normal Performing Lab: Notes/Report: Test performed by [facility], [address] , [address] , [place] [address] Jordin Phelps MD, Toe Closing Machine Tender CLIA: [id number] Cholesterol 155 <200 mg/dL Triglycerides 125 <150 [...] Results: 82 Units: mg/dL % Change: -51% P-Microalbumin/Creatinine, R andom Urine Sample Reviewed date:03/21/2024 09:10:09 AM Interpretation:Normal Performing Lab: Notes/Report: Test performed by [facility] [address] [place], [place] [address] [facility] [address] , [address] , [place] [address] Jordin Phelps MD, Toe Closing Machine Tender CLIA: [id number] Albumin/Creatinine Ratio, Urine <6.1 0-30 ug/m g Microalbumin, Urine, Random <0.3 Creatinine, Urine 48.7 P-Comprehensive Metabolic Pa jennifer (CMP) Reviewed date:03/21/2024 09:10:09 AM Interpretation:gluc 110, alk phos 148 Performing Lab: Notes/Report: Test performed by [facility] [address] [place], [place] [address] [address] , [address], [place] [address] Jordin Phelps MD, Toe Closing Machine Tender CLIA: [id number] Sodium 143 135-145 mmol/L Potassium 4.9 3.5-5.3 [...] 0.6 <0.2-1.2 mg/dL A/G Ratio 1.6 1.1-2.5 Glycohemoglobin A1c (in hous e) Reviewed date:03/21/2024 09:03:33 AM Interpretation:6 Performing Lab: Notes/Report: 6 glycohemoglobin 6.0% 5 - 6.5 % Glucose (In-House) Reviewed date:05/22/2024 05:58:20 PM Interpretation: Performing Lab: Notes/Report: blood glucose 128 74 - 106 mg/dL Glycohemoglobin A1c (in hous e) Reviewed date:05/22/2024 05:58:28 PM Interpretation: Performing Lab: Notes/Report: glycohemoglobin 6.2% 5 - 6.5 % Medications Medication SIG (Take, Route, Frequency, Duration) Notes Start Date End Date Status Cod Liver Oil w/Vit A & D - 1 cap(s) orally twice a day; Duration: 30 day(s) Active Albuterol Sulfate HFA 108 (90 Base) MCG/ACT 1 puff Inhalation every 4 hrs, prn 03/21/2023 Active Ibuprofen 600 MG 1 tablet with food o r milk as needed Orally three times a day as needed; Duration: 60 days 08/09/2023 Active Meclizine HCl 12.5 MG 1 orally bedtime prn 016 Active Itraconazole 100 MG 2 capsules Orally On ce a day; Duration: 14 days 01/22/2025 Active PreserVision AREDS 2 - as directed Orally Active Repatha 140 MG/ML 1 mL Subcutaneous ev rachael 2 weeks Active Vivelle-Dot 0.025 MG/24HR 1 PATCH applied topically 2 times a week Active Losartan Potassium 50 MG 1 tab(s) orally once a day; Duration: 90 days 03/30/2021 Active Xyzal Allergy 24HR 5 MG 1 tab(s) orally once a day (in the evening); Duration: 90 days Active Doxycycline Hyclate 100 MG 1 capsule Orally twice a day; Duration: 10 days 12/16/2024 Not-Jaironin g Aspirin 81 81 MG 1 tablet Orally Once a day Active Vitamin B-12 1000 MCG 1 tablet Orally On ce a day Active Fluocinonide 0.05 % 1 application Tail Board Man ally Twice a day prn 01/01/2025 Active Immunizations Vaccine Route Administration Date Status Comme nts COVID 19 Rita Unknown 05/26/2020 Administered COVID 19 Rita Unknown 02/23/2021 Administered Hepatitis A (adult) Unknown 02/27/2018 Administered PNEUMOVAX 23 VACCINE IM Intramuscular 12/31/2009 Administe red PNEUMOVAX 23 VACCINE IM Intramuscular 01/29/2019 Administe red Prevnar (PCV13) Unknown 11/28/2017 Refused Prevnar (PCV13) IM Intramuscular 01/30/2018 Administered Tetanus Tdap-Adacel (over 7yrs) IM Intramuscular 12/31/2009 Administered Tetanus Tdap-Adacel (over 7yrs) Unknown 10/19/2019 Administered Problems Problem Type SNOMED Code ICD Code Onset Dates Problem Status W/U Status Risk Notes Problem Essential hypertension (74693587) Essential hypertension (I10) Active confirmed Problem Osteopenia (109676555) Osteopenia (M85.80) Active confirmed Problem Obstructive sleep apnea (02665856) Obstructive sleep apnea (G47.33) Active confirmed Problem Liver enzymes abnormal (258732409) Abnormal liver enzymes (R74.8) Active confirmed Problem Environmental allergy (318119325) Environmental allergies (Z91.09) Active confirmed Problem Mixed hyperlipidemia (527322659) Mixed hyperlipidemia (E78.2) Active confirmed Problem Hyperlipidemia due to type 2 diabetes mellitus (disorder) (389005366801008) Hyperlipidemia associated with type 2 diabetes mellitus (E11.69) Active confirmed Problem Obesity (065627085) Obesity (BMI 30-39.9) (E66.9) Active confirmed Problem Type II diabetes mellitus without complication (203425430) Type 2 diabetes mellitus without complication (E11.9) Active confirmed Problem Seasonal allergy (717238221) Environmental and seasonal allergies (J30.89) Active confirmed Problem Diverticular disease of colon (276978318) Diverticulosis of large intestine without hemorrhage (K57.30) Active confirmed Problem Osteoarthritis of knee (425051481) Osteoarthritis of both knees, unspecified osteoarthritis type (M17.0) Active confirmed Problem Eczema (64595436) Eczema, unspecified type (L30.9) Active confirmed Problem Dermatitis (052236158) Foot dermatitis (L30.9) Active confirmed Problem Cardiac dysrhythmia (890265018) Cardiac dysrhythmia, unspecified (I49.9) Active confirmed Problem Fibrocystic breast changes (68124151) Fibrocystic breast disease (FCBD), unspecified laterality (N60.19) Active confirmed Vital Signs Heart Rate 78 /min 01/22/2025 Blood pressure diastolic 70 mm Hg 01/22/2025 Height 64.75 in 01/22/2025 Blood pressure systolic 148 mm Hg 01/22/2025 Weight 183.4 lbs 01/22/2025 BMI 30.75 kg/m2 01/22/2025 Encounters Encounter Location Date Provider Diagnosis [facility] [address] [id number] 03/20/2024 Cristina Frausto Type 2 diabetes krys itus without complication E11.9 ; Essential hypertension I10 and Cardiac dysrhythmia, unspecified I49.9 [facility] [address] [id number] 05/22/2024 Cristina Frausto Type 2 diabetes krys itus without complication E11.9 ; Hyperlipidemia associated with type 2 diabetes mellitus E11.69 and Foot dermatitis L30.9 [facility] [address] [id number] 09/04/2024 Cristina Frausto Type 2 diabetes krys itus without complication E11.9 ; Mixed hyperlipidemia E78.2 and Obesity (BMI 30-39.9) E66.9 [facility] [address] [id number] 11/20/2024 Cristina Frausto Foot dermatitis L30. 9 [facility] [address] [id number] 12/16/2024 R Farrukh Laws Dermatitis L30.9 [facility] [address] [place], [place] [id number] 01/22/2025 J Cody Frausto Allergic rhinitis, unspecified allergic rhinitis type J30.9 ; Foot dermatitis L30.9 and Diplopia H53.2 [facility] [address] [place], [place] [id number] 01/12/2025 Cristina Frausto [facility] [address] [place], [place] [id number] 02/27/2024 Cristina Frausto Allergic rhinitis, unspecified allergic rhinitis type J30.9 [facility] [address] [place], [place] [id number] 03/14/2024 Cristina Frausto [facility] [address] [place], [place] [id number] 03/21/2024 Cristina Frausto [facility] [address] [place], [place] [id number] 07/31/2024 Cristina Frausto Allergic rhinitis, unspecified allergic rhinitis type J30.9 [facility] [address] [place], [place] [id number] 10/01/2024 Cristina Frausto [facility] [address] [place], [place] [id number] 10/14/2024 Cristina Frausto Essential hypertensi on I10 [facility] [address] [place], [place] [id number] 10/29/2024 Cristina Frausto Allergic rhinitis, unspecified allergic rhinitis type J30.9 [facility] [address] [place], [place] [id number] 12/31/2024 R Farrukh Eusebia Allergic rhinitis, unspecified allergic rhinitis type J30.9 Assessments Encounter Date Diagnosis (ICD Code) Assessment Notes Treatment Notes Treatment Clinical Notes Section Notes 02/27/2024 Allergic rhinitis, unspecified allergic rhinitis type (ICD-10 - J30.9) 03/20/2024 Essential hypertension (ICD-10 - I10) 03/20/2024 Type 2 diabetes mellitus without complication (ICD-10 - E11.9) 05/22/2024 Hyperlipidemia associated with type 2 diabetes mellitus (ICD-10 - E11.69) 05/22/2024 Type 2 diabetes mellitus without complication (ICD-10 - E11.9) 09/04/2024 Type 2 diabetes mellitus without complication (ICD-10 - E11.9) 10/14/2024 Essential hypertension (ICD-10 - I10) 10/29/2024 Allergic rhinitis, unspecified allergic rhinitis type (ICD-10 - J30.9) 11/20/2024 Foot dermatitis (ICD-10 - L30.9) continue Betamethasone and occlusive dressings. Add nystatin. 12/16/2024 Dermatitis (ICD-10 - L30.9) She has fluocinonide 0.05% cream at home that she uses for eczema and will start using this on her foot. Add doxycycline for potential secondary bacterial infection. 12/31/2024 Allergic rhinitis, unspecified allergic rhinitis type (ICD-10 - J30.9) 07/31/2024 Allergic rhinitis, unspecified allergic rhinitis type (ICD-10 - J30.9) 09/04/2024 Mixed hyperlipidemia (ICD-10 - E78.2) 01/22/2025 Allergic rhinitis, unspecified allergic rhinitis type (ICD-10 - J30.9) 01/22/2025 Foot dermatitis (ICD-10 - L30.9) 09/04/2024 Obesity (BMI 30-39.9) (ICD-10 - E66.9) 01/22/2025 Diplopia (ICD-10 - H53.2) 05/22/2024 Foot dermatitis (ICD-10 - L30.9) 03/20/2024 Cardiac dysrhythmia, unspecified (ICD-10 - I49.9) Plan Of Treatment Pending Test Test Name Order Date MRI : Brain with and w/o contrast 2024 Next Appt Details Provider Name:Cristina Jhon er, 02/19/2025 01:45:00 PM, [address], [address], [place], [place], [phone], Insurance Providers Payer Name Payer Address Payer Phone Subscriber Number Group Number Insured Name Patient Relationship to Insured Coverage Start Date Coverage End Date MEDICARE PART B [address] [address] [place] [phone] [id number] [place] Self - patient is the insured [facility] [address] [address] [place] [address] [id number] [place] Self - patient is the insured Medications Administered Medication Instructions Date of Administration Dosage Notes Dexamethasone 03/13/2006 1 mL Dexamethasone 07/11/2006 1 mL Dexamethasone 03/13/2007 1 mL Dexamethasone 01/27/2010 1 mL Dexamethasone 04/13/2012 4 mg Medical (General) History Medical History History ICD Code Hyperlipidemia Allergic Rhinitis Basal Cell Carcinoma, Face, 2005 CT for Pulsatile Tinnitus, Dr. Fitch Diabetes Mellitus Type II Surgical History Surgery Date(Month/Year) Hysterectomy Urethral Vocal Cord Polyps Removal 12/2007 RT Trigger Thumb X3 Colonoscopy, Diverticulitis, Dr. Adames 1 03/31/2017 RT Cataract 10/29/2018 LT Cataract 12/10/2018 blepharoplasty OU, Dr. Zurita 04/01/24 Hospitalization History Reason Date(Month/Year) Stepped on [facility] [place] 10/19/2019
--- OUTSIDE RECORDS SUMMARY | 2025-02-05 08:59 | XMS_ITS ---
Author Organization Unknown ENCOUNTERS Encounter Performer Location Date Diagnosis Diagnosis Status Emergency [address] [facility] [address] [place] [address] [id number] BEATRIZ *Note: Encounters from your own facility or health system may be excluded. Allergies, Adverse Reactions, Alerts Allergen Type Severity Identification Date Quinolones drug allergy 0 [id number] levofloxacin drug allergy 0 [id number] oxytetracycline drug allergy 0 [id number] Medications Name Date Quantity Days Supplied GPI Number
[2025-02-05 09:08] LABS: Blood Urea Nitrogen 19 mg/dl (7-17); Creatinine,Serum 0.90 mg/dl (0.52-1.04); Estimated Glomerular Filt Rate 61 ml/min (>60); GFR (African American) 74 ML/MIN (>60)
[2025-02-05] MEDS: GADOTERIDOL INJ 20ML SYRINGE 17 ML IV (11:00)
== END 2025-02-05 23:59 | disposition home or self-care (01) ==
LOC: RAD 08:50
PROVIDERS: PCP Family Medicine; Visit Provider Family Medicine
DX: R90.82 White matter disease, unspecified (principal); H53.2 Diplopia
CPT/HCPCS: 36415; 70553; 82565; 84520; A9576